=== PATIENT | female | born 1940 | race Caucasian/White ===

== ENCOUNTER → 2017-03-26 | Outpatient (CLI) | payer MEDICARE, BC ==
--- NOTE | 2017-03-27 10:37 | MM ---
Reason for exam: screening (asymptomatic). Last mammogram was performed 1 year and 5 months ago. History: Patient is postmenopausal and has history of other cancer at age 69. Family history of breast cancer in maternal aunt. Benign core biopsy of the right breast, 1989. Physical Findings: A clinical breast exam by your physician is recommended on an annual basis and results should be correlated with mammographic findings. MG 3D Screening Mammo W/Cad Bilateral CC and MLO view(s) were taken. Prior study comparison: November 01, 2015, bilateral MG screening mammo w CAD. October 28, 2014, bilateral MG screening mammo w CAD. There are scattered fibroglandular densities. No significant changes when compared with prior studies. ASSESSMENT: Benign, BI-RAD 2 RECOMMENDATION: Routine screening mammogram of both breasts in 1 year.
== END | disposition home or self-care (01) ==
LOC: RADMAMWWP 08:41
PROVIDERS: ATTEND Family Medicine
DX: Z12.31 Encounter for screening mammogram for malignant neoplasm of breast (principal)
CPT/HCPCS: 77063; G0202

== ENCOUNTER → 2017-07-03 | Outpatient (CLI) | payer MEDICARE, BC ==
[2017-07-03 07:08] LABS: Basophils % (A) 1 %; CH 29.5; CHCM 32.8; Eosinophils # (A) 0.2 k/uL (0-0.7); Eosinophils % (A) 3 %; HCT 45.3 % (34.0-46.0); HDW 2.37; HGB 14.9 gm/dL (11.4-16.0); Luc # (Auto) 0.12; Luc % (Auto) 2; Lymphocytes # (A) 2.5 k/uL (1.0-4.8); Lymphocytes % (A) 43 %; MCH 29.7 pg (25.0-35.0); MCHC 32.9 g/dL (31.0-37.0); MCV 90.2 fL (80.0-100.0); Mean Platelet Volume 7.3; Monocytes # (A) 0.2 k/uL (0-1.0); Monocytes % (A) 4 %; Neutrophils # (A) 2.8 k/uL (1.3-7.7); Neutrophils % (A) 48 %; RBC 5.01 m/uL (3.80-5.40); RDW 12.2 % (11.5-15.5); WBC 5.8 k/uL (3.8-10.6); WBC (Perox) 5.98
[2017-07-03 07:20] LABS: ALT 37 U/L (9-52); AST 20 U/L (14-36); Alkaline Phosphatase 62 U/L (38-126); Anion Gap 7 mmol/L; Blood Urea Nitrogen 19 mg/dL (7-17); Calcium 9.9 mg/dL (8.4-10.2); Carbon Dioxide 26 mmol/L (22-30); Chloride 110 mmol/L (98-107); Cholesterol 257 mg/dL (<200); Glucose 99 mg/dL (74-99); HDL Cholesterol 62 mg/dL (40-60); Non-African American GFR(MDRD) >60 (>60 ml/min/1.73 sqM); Potassium 4.7 mmol/L (3.5-5.1); Sodium 143 mmol/L (137-145); Total Bilirubin 0.5 mg/dL (0.2-1.3); Total Protein 6.3 g/dL (6.3-8.2); Triglycerides 216 mg/dL (<150)
== END | disposition home or self-care (01) ==
LOC: LABWHC1 06:46
PROVIDERS: ATTEND Family Medicine
DX: Z00.00 Encounter for general adult medical examination without abnormal findings (principal); E78.00 Pure hypercholesterolemia, unspecified; Z13.29 Encounter for screening for other suspected endocrine disorder
CPT/HCPCS: 36415; 80053; 80061; 84443; 85025

== ENCOUNTER → 2018-09-09 | Outpatient (CLI) | payer MEDICARE, BC ==
[2018-09-09 09:36] LABS: Basophils % (A) 1 %; Eosinophils # (A) 0.2 k/uL (0-0.7); Eosinophils % (A) 3 %; HCT 44.3 % (34.0-46.0); HGB 14.5 gm/dL (11.4-16.0); Lymphocytes # (A) 2.3 k/uL (1.0-4.8); Lymphocytes % (A) 38 %; MCH 28.6 pg (25.0-35.0); MCHC 32.6 g/dL (31.0-37.0); MCV 87.6 fL (80.0-100.0); Monocytes # (A) 0.2 k/uL (0-1.0); Monocytes % (A) 4 %; Neutrophils # (A) 3.2 k/uL (1.3-7.7); Neutrophils % (A) 53 %; Platelet Count 324 k/uL (150-450); RBC 5.06 m/uL (3.80-5.40); RDW 12.7 % (11.5-15.5)
[2018-09-09 09:57] LABS: Albumin 3.9 g/dL (3.5-5.0); Calcium 9.8 mg/dL (8.4-10.2); Potassium 4.6 mmol/L (3.5-5.1); Total Bilirubin 0.7 mg/dL (0.2-1.3); Total Protein 6.4 g/dL (6.3-8.2)
== END | disposition home or self-care (01) ==
LOC: LABWHC1 07:38
PROVIDERS: ATTEND Family Medicine
DX: E78.00 Pure hypercholesterolemia, unspecified (principal); I10 Essential (primary) hypertension
CPT/HCPCS: 36415; 80053; 80061; 85025

== ENCOUNTER → 2019-04-08 | Outpatient (CLI) | payer MEDICARE, BC ==
--- NOTE | 2019-04-09 12:54 | MM ---
Reason for exam: screening (asymptomatic). Last mammogram was performed 2 years ago. History: Patient is postmenopausal and has history of other cancer at age 69. Family history of breast cancer in maternal aunt. Benign core biopsy of the right breast, 1989. Physical Findings: A clinical breast exam by your physician is recommended on an annual basis and results should be correlated with mammographic findings. MG 3D Screening Mammo W/Cad Bilateral CC and MLO view(s) were taken. Prior study comparison: March 26, 2017, bilateral MG 3d screening mammo w/cad. November 01, 2015, bilateral MG screening mammo w CAD. There are scattered fibroglandular densities. Stable benign calcifications. Increasing nodule upper outer right breast. ASSESSMENT: Incomplete: need additional imaging evaluation, BI-RAD 0 RECOMMENDATION: Special view mammogram and ultrasound of the right breast. [facility] will attempt to contact patient to return for supplemental views and ultrasound.
== END | disposition home or self-care (01) ==
LOC: RADMAMWWP 12:36
PROVIDERS: ATTEND Family Medicine
DX: Z12.31 Encounter for screening mammogram for malignant neoplasm of breast (principal)
CPT/HCPCS: 77063; 77067

== ENCOUNTER → 2019-04-13 | Outpatient (CLI) | payer MEDICARE, BC ==
[2019-04-13 12:00] LABS: LDL Cholesterol,Calculated 152.6 mg/dL (0.0-131.0); VLDL Calculation 43.4 mg/dL (5.00-40.00)
== END | disposition home or self-care (01) ==
LOC: LABWHC1 07:05
PROVIDERS: ATTEND Family Medicine
DX: Z00.00 Encounter for general adult medical examination without abnormal findings (principal); E78.00 Pure hypercholesterolemia, unspecified
CPT/HCPCS: 36415; 80061; 84450; 84460

== ENCOUNTER → 2019-04-16 | Outpatient (CLI) | payer MEDICARE, BC ==
--- NOTE | 2019-04-16 15:14 | MM ---
Reason for exam: additional evaluation requested from abnormal screening. Last mammogram was performed less than 1 month ago. History: Patient is postmenopausal and has history of other cancer at age 69. Family history of breast cancer in maternal aunt. Benign core biopsy of the right breast, 1989. Physical Findings: Nurse did not find any significant physical abnormalities on exam. MG 3D Work Up W/Cad RT Spot compression CC, spot compression MLO, and LM view(s) were taken of the right breast. Prior study comparison: April 08, 2019, bilateral MG 3d screening mammo w/cad. March 26, 2017, bilateral MG 3d screening mammo w/cad. There are scattered fibroglandular densities. No significant new findings when compared with previous films. These results were verbally communicated with the patient and result sheet given to the patient on 04/16/19. ASSESSMENT: Incomplete: need additional imaging evaluation, BI-RAD 0 RECOMMENDATION: Ultrasound of the right breast.
--- NOTE | 2019-04-16 15:15 | USB ---
Reason for exam: additional evaluation requested from abnormal screening. History: Patient is postmenopausal and has history of other cancer at age 69. Family history of breast cancer in maternal aunt. Benign core biopsy of the right breast, 1989. US Breast Workup Limited RT Right limited breast ultrasound including focal area of concern, retroareolar and axilla demonstrates a 5 x 4 x 4mm hypoechoic lesion too small to characterize at 11 o'clock. These results were verbally communicated with the patient and result sheet given to the patient on 04/16/19. ASSESSMENT: Probably benign, BI-RAD 3 RECOMMENDATION: Ultrasound of the right breast in 6 months.
== END | disposition home or self-care (01) ==
LOC: RADMAMWWP 13:23
PROVIDERS: ATTEND Family Medicine
DX: R92.8 Other abnormal and inconclusive findings on diagnostic imaging of breast (principal)
CPT/HCPCS: 77065; 76642; G0279; 77061

== ENCOUNTER → 2019-11-04 | Outpatient (CLI) | payer MEDICARE, BC ==
--- NOTE | 2019-11-04 11:48 | USB ---
Reason for exam: follow-up at short interval from prior study. History: Patient is postmenopausal and has history of other cancer at age 69. Family history of breast cancer in maternal aunt. Benign core biopsy of the right breast, 1989. Physical Findings: Nurse did not find any significant physical abnormalities on exam. US Breast Limited RT Technologist: Paris Carroll Right limited breast ultrasound including focal area of concern, retroareolar and axilla demonstrates a 0.5 x 0.5 x 0.4cm hypoechoic lesion at 11 o'clock, solid with shadowing peripheral vascular flow. Biopsy recommended. These results were verbally communicated with the patient and result sheet given to the patient on 11/04/19. ASSESSMENT: Suspicious, BI-RAD 4 RECOMMENDATION: Ultrasound core biopsy of the right breast. Called Dr. Marisol Shen's office with mammographic findings and has scheduled an appointment for the patient for 12/29/18 at 4:[address] Shen. Biopsy scheduled for 11/29/19 at 2:00. PRELIMINARY REPORT CALLED AND FAXED TO DR. SHEN ON 11/04/19.
== END | disposition home or self-care (01) ==
LOC: RADUSWWP 09:53
PROVIDERS: ATTEND Family Medicine
DX: R92.8 Other abnormal and inconclusive findings on diagnostic imaging of breast (principal)

== ENCOUNTER → 2019-11-29 | Day surgery (SDC) | payer MEDICARE, BC ==
[2019-11-29 13:22] VITALS: RESP 16
[2019-11-29 14:22] VITALS: BP 150/77; PULSE 69; TEMP 98.4
--- NOTE | 2019-11-29 15:55 | USB ---
EXAMINATION TYPE: US biopsy breast VAD RT, MG diagnostic mammo RT wo CAD DATE OF EXAM: 11/29/2019 CLINICAL HISTORY: R92.8 ABNORMAL MAMMORGRAM. TECHNIQUE: Ultrasound guided core biopsy of right breast. COMPARISON: 11/04/2019 FINDINGS: The procedure of ultrasound guided core biopsy was explained to the patient. Benefits, alternatives, and risks were discussed. An informed consent was then obtained. Preprocedural timeout was performed. The patient was placed in supine positioning for imaging and for the procedure. The overlying skin was prepped and draped in usual sterile fashion. 10 cc of 1% lidocaine was used as anesthetic into the skin and subcutaneous tissue up to a 0.5 cm mass at the 11:00 position in the right breast. On preprocedural imaging studies have similar MR appearance of a lymph node. Under ultrasound guidance, a 12-gauge vacuum assisted biopsy gun device was used to obtain 4 core samples. Following this, a coil-shaped biopsy marker was left at the site of biopsy. Post procedure mammogram demonstrates appropriate biopsy marker placement correlating with the mammographic mass. The patient tolerated the procedure well without any immediate complication. The patient was kept in the radiology department for short stay after the procedure and then discharged home in stable condition. IMPRESSION: Successful, uncomplicated ultrasound guided core biopsy of a 0.5 cm mass at the 11:00 position in the right breast, possible intramammary lymph node, full pathology results to follow. Pathology Results: Malignant RIGHT BREAST AT ELEVEN O'CLOCK, ULTRASOUND GUIDED CORE BIOPSY: Invasive ductal carcinoma (grade 2). See Surgical Pathology Cancer Case Summary and Comment. Recommendation Surgical consult of the right breast. Surgical excision/managment. Ammendable to mammographic guided needle localization. MTDD
== END ==
LOC: RADUSWWP 12:42
PROVIDERS: ATTEND Surgery
DX: C50.911 Malignant neoplasm of unspecified site of right female breast (principal); Z17.0 Estrogen receptor positive status [ER+]; Z88.1 Allergy status to other antibiotic agents; Z88.0 Allergy status to penicillin
CPT/HCPCS: 88305; 88342; 88341; 77065; 19083; A4648; J2001

== ENCOUNTER 2020-01-03 08:18 | Day surgery (SDC) | payer MEDICARE, BC ==
[2019-12-30 09:16] VITALS: BMI 30.7
[~2020-01-03 08:18] MED LIST: DEXAMETHASONE SOD PHOSPHATE 10 MG/ML 1 ML VIAL IV ONE; HEPARIN SODIUM,PORCINE 5,000 UNIT/ML 1 ML VIAL SQ ONE; LACTATED RINGERS 1,000 ML IV SCH; LIDOCAINE 1% 20 ML VIAL (10MG/ML) FOR IV START INTRADERMA PRN; ONDANSETRON 4 MG/2 ML VIAL IVP ONE; Pre Op ABX Message 1 EACH MISC MISCELLANE ONE
[2020-01-03] MEDS ORDERED: LIDOCAINE 1% INJ 10MG/ML (20 ML MDV) SQ ONE (09:56)
--- NOTE | 2020-01-03 10:40 | NM ---
EXAMINATION TYPE: NM sentinel node injection DATE OF EXAM: 01/03/2020 COMPARISON: Right breast biopsy dated 11/29/2019 HISTORY: Right breast cancer with request for sentinel node injection TECHNIQUE AND FINDINGS: The procedure of sentinel lymph node injection was explained to the patient. The benefits, alternatives, and risks were discussed. An informed consent was then obtained. Overlying skin is cleaned with sterile alcohol. Following this, 535 uCi Tc99m Tilmanocept was inject ed in the upper outer aspect of the right nipple intradermally. The patient tolerated the procedure well without any immediate complication. The patient was kept in the radiology department for short stay after the procedure and then taken to surgery for surgical p rocedure what is presumed intraoperative gamma probe will be used for sentinel lymph node detection. IMPRESSION: Right breast radiotracer injection for sentinel node localization as above.
[2020-01-03] MEDS ORDERED: PHENYLEPHRINE-0.9% NACL SYG 1 MG/10 ML SYRINGE ONE (11:06)
[2020-01-03] MEDS ORDERED: fentaNYL (PF) 50 MCG/ML 2 ML AMP ONE (11:06)
[2020-01-03] MEDS ORDERED: LIDOCAINE 1% INJ 10MG/ML (20 ML MDV) ONE (11:06)
[2020-01-03] MEDS ORDERED: MIDAZOLAM 2 MG/2 ML VIAL ONE (11:06)
[2020-01-03] MEDS ORDERED: PROPOFOL 10 MG/ML 20 ML VIAL IV ONE (11:06)
[2020-01-03] MEDS ORDERED: CLINDAMYCIN 150 MG/ML 4 ML VIAL IVPB ONE (11:33)
[2020-01-03] MEDS ORDERED: BUPIVACAINE (PF) 0.25% 30 ML VIAL SQ ONE ×2 (11:36→12:31)
[2020-01-03] MEDS ORDERED: ACETAMINOPHEN TAB 325 MG TAB PO PRN (12:33)
[2020-01-03] MEDS ORDERED: NALOXONE 0.4 MG/ML 1 ML VIAL IV PRN (12:33)
--- NOTE | 2020-01-03 12:36 | P.OP ---
Date of Procedure: 01/03/20 Procedure(s) Performed: REOPERATIVE DIAGNOSIS: Right breast cancer POSTOPERATIVE DIAGNOSIS: Same PROCEDURE: Right Breast wire localization lumpectomy with sentinel lymph node biopsy SURGEON: Johnnie EBL: Minimal ANESTHESIA: General COMPLICATIONS: None OPERATIVE PROCEDURE: Patient was placed on the operating room table in the supine position. 2 mL of methylene blue was injected into the subareolar space. The breast was then massaged for 5 minutes. The breast was prepped and draped in usual sterile fashion. The right axilla was addressed at that time. The hot spot in the right axilla was identified. A small curvilinear incision was made using the scalpel. Dissection down through the subcutaneous tissues took place using electrocautery. Using the neoprobe I identified a single hot and blue lymph node. This was removed. Clinically this appeared normal. No frozen section was obtained. There was additional blue color and radioactivity present in what likely represented the lymphatic channels feeding this sentinel node. This was excised and labeled lymph tissue. No additional abnormalities within the axilla were identified. There was no residual radioactivity. No bleeding was seen. The subcutaneous tissues were closed using 3-0 Vicryl sutures. The skin was closed using 4-0 Monocryl sutures. The wire entrance site was then addressed. This was present at the 11:00 location. A curvilinear incision was made inferior to the wire entrance site. Flaps were raised from that incision site up to the wire entrance site. The wire was then brought out through our incision. I followed the wire down into the breast tissue. An adequate lumpectomy specimen then took place around the wire. Margins of 1.5-2 cm worth attempted to be achieved. Palpation of the specimen suggested that the anterior margin may have been somewhat close. An additional anterior margin was taken and the new margin was painted the appropriate color on the new margin side. The initial specimen was also painted the appropriate 6 colors. Clips were used to identify the lumpectomy cavity. The clip was confirmed to be within the lumpectomy specimen by radiology. The subcutaneous tissues were closed using 3- 0 Vicryl sutures. The skin was closed using a running 4-0 Monocryl stitch. Skin glue and sterile dressings were then applied. DISPOSITION: Stable to recovery room
[2020-01-03 12:41] VITALS: TEMP 98.2
--- NOTE | 2020-01-03 12:45 | MM ---
EXAMINATION TYPE: MG pre op needle loc RT, MG surgical specimen RT DATE OF EXAM: 01/03/2020 COMPARISON: Right breast biopsy dated 11/29/2019 CLINICAL HISTORY: Biopsy-proven right breast cancer TECHNIQUE: Needle localization with wire placement and surgical excision of area of concern in the right breast. FINDINGS: The procedure of needle localization with wire placement and than surgical excision was explained to the patient. Benefits, alternatives, and risks were discussed. An informed consent was then obtained. Preprocedural timeout was performed. The shortest pathway for procedure was chosen. Shortest pathway was CC from above approach. The overlying skin was prepped and draped in usual sterile fashion. 10 cc of 1% lidocaine was used as anesthetic into the skin and subcutaneous tissue up to the level of area of concern. A 7 cm needle was used. It was placed via a CC from above approach under mammographic guidance. Subsequent 90 degrees mammogram show the needle to be in satisfactory position relative to the targeted area. At this point, wire was placed and the needle was withdrawn. The wire was fixed to patient's skin. Images were marked for surgeon. The patient tolerated the procedure well without any immediate complication. The patient was kept in the radiology department for short stay after the procedure and then taken to surgery for surgical excision. Targeted mammographic mass and coil-shaped biopsy marker and wire are identified in specimen mammogram. The patient was kept in hospital for short stay after the procedure and then discharged home in stable condition. IMPRESSION: Successful, uncomplicated needle localization with wire placement and surgical excision of a biopsy-proven right breast invasive ductal carcinoma and associated coil-shaped biopsy marker in the right breast, full pathology results to follow. Pathology Results: Malignant A. SENTINEL LYMPH NODE #1, BIOPSY: One lymph node negative for metastatic adenocarcinoma by H+E as well as appropriately controlled immunohistochemical studies for cytokeratin 7 and BALA. B. "LYMPHATIC TISSUE", EXCISION: Benign fibroadipose tissue, lymph node not identified. C. RIGHT BREAST, LUMPECTOMY: Adenocarcinoma, Holden grade 2 measuring 0.8 x 0.5 x 0.6 cm. Surrounding fibrosis/desmoplasia approximates the superoposterior black/purple-felicita margin and the posterior purple-felicita margin to closer than 1 mm. See note. D. NEW RIGHT ANTERIOR MARGIN, EXTENDED EXCISION: Benign fibroadipose breast parenchyma with focal atypical duct hyperplasia about 1.2 mm away from the intraoperatively blue inked margin of resection. Recommendation Surgical consult of the right breast. Continued surgical/medical management. MTDD
[2020-01-03] MEDS: HYDROmorphone 0.5 MG/0.5 ML SYRINGE IVP PRN ×2 (12:55→13:09)
[2020-01-03 13:03] VITALS: RESP 16
[2020-01-03] MEDS ORDERED: KETOROLAC 30 MG/ML 1 ML VIAL IVP ONE (14:16)
[2020-01-03 14:56] VITALS: BP 138/84; PULSE 74
== END 2020-01-03 15:15 | disposition home or self-care (01) ==
LOC: OR 08:18
PROVIDERS: ATTEND Surgery
DX: C50.411 Malignant neoplasm of upper-outer quadrant of right female breast (principal); N60.91 Unspecified benign mammary dysplasia of right breast; N60.31 Fibrosclerosis of right breast; I48.91 Unspecified atrial fibrillation; I10 Essential (primary) hypertension; M19.90 Unspecified osteoarthritis, unspecified site; Z88.0 Allergy status to penicillin; Z88.8 Allergy status to other drugs, medicaments and biological substances; Z88.1 Allergy status to other antibiotic agents; Z91.048 Other nonmedicinal substance allergy status; Z82.3 Family history of stroke; Z80.0 Family history of malignant neoplasm of digestive organs; Z80.42 Family history of malignant neoplasm of prostate; Z90.710 Acquired absence of both cervix and uterus; Z90.49 Acquired absence of other specified parts of digestive tract; Z98.890 Other specified postprocedural states; Z79.82 Long term (current) use of aspirin; Z79.1 Long term (current) use of non-steroidal anti-inflammatories (NSAID); Z79.899 Other long term (current) drug therapy
CPT/HCPCS: 19301; 38525; 88305; 88342; 88307; 88341; 76098; 19281; 38792; A9520; J2250; J1644; J1100; J2405; J2001; J3010; J1885; J2370; J2704; J1170

== ENCOUNTER → 2020-05-19 | Outpatient (CLI) | payer MEDICARE, BC ==
--- NOTE | 2020-05-22 08:20 | MM ---
Reason for exam: additional evaluation requested from prior study. Last mammogram was performed 6 months ago. History: Patient is postmenopausal, has history of breast cancer at age 79, and has history of other cancer at age 69. Family history of breast cancer in maternal aunt. Malignant MG pre op needle loc RT of the right breast, January 03, 2020. Lumpectomy of the right breast, January 03, 2020. Malignant US biopsy breast VAD RT of the right breast, November 29, 2019. Benign core biopsy of the right breast, 1989. Physical Findings: Nurse did not find any significant physical abnormalities on exam. MG 3D Diag Mammo W/Cad CRYSTAL Bilateral CC and MLO view(s) were taken. Prior study comparison: November 29, 2019, right breast MG diagnostic mammo RT wo CAD. April 08, 2019, bilateral MG 3d screening mammo w/cad. Post biopsy changes right upper outer quadrant. No significant new findings when compared with previous films. These results were verbally communicated with the patient and result sheet given to the patient on 05/19/20. ASSESSMENT: Benign, BI-RAD 2 RECOMMENDATION: Follow-up diagnostic mammogram of both breasts in 1 year.
== END | disposition home or self-care (01) ==
LOC: RADMAMWWP 10:29
PROVIDERS: ATTEND Surgery
DX: R92.8 Other abnormal and inconclusive findings on diagnostic imaging of breast (principal)
CPT/HCPCS: 77066; G0279; 77062

== ENCOUNTER → 2020-06-14 | Outpatient (CLI) | payer MEDICARE, BC ==
[2020-06-14 08:59] LABS: Basophils # (A) 0.1 k/uL (0-0.2); Basophils % (A) 1 %; Eosinophils # (A) 0.2 k/uL (0-0.7); Eosinophils % (A) 2 %; HCT 44.5 % (34.0-46.0); HGB 14.3 gm/dL (11.4-16.0); Lymphocytes % (A) 33 %; MCH 29.1 pg (25.0-35.0); MCHC 32.2 g/dL (31.0-37.0); MCV 90.3 fL (80.0-100.0); Mean Platelet Volume 8.2; Monocytes # (A) 0.3 k/uL (0-1.0); Monocytes % (A) 5 %; Neutrophils # (A) 3.5 k/uL (1.3-7.7); Neutrophils % (A) 57 %; Platelet Count 264 k/uL (150-450); RBC 4.93 m/uL (3.80-5.40); RDW 12.7 % (11.5-15.5); WBC 6.1 k/uL (3.8-10.6)
[2020-06-14 16:28] LABS: African American GFR (CKD) 62.1 (60.0-200.0); Albumin 4.2 g/dL (3.80-4.90); Albumin/Globulin Ratio 2.47 (1.60-3.17); Anion Gap 7.2 mmol/L (4.00-12.00); Carbon Dioxide 25.8 mmol/L (21.6-31.8); Chol/HDL Ratio 4.17; Globulin 1.7 g/dL (1.6-3.3); LDL Cholesterol,Calculated 132.4 mg/dL (0.0-131.0); Non-African American GFR(CKD) 53.5 (60.0-200.0); Potassium 4.9 mmol/L (3.5-5.5); Total Bilirubin 0.5 mg/dL (0.2-1.2); Total Protein 5.9 g/dL (6.2-8.2); VLDL Calculation 35.6 mg/dL (5.00-40.00)
== END | disposition home or self-care (01) ==
LOC: LABWHC1 07:43
PROVIDERS: ATTEND Family Medicine
DX: I10 Essential (primary) hypertension (principal); E78.00 Pure hypercholesterolemia, unspecified; R01.1 Cardiac murmur, unspecified
CPT/HCPCS: 36415; 80053; 80061; 85025

== ENCOUNTER 2020-08-09 23:51 | Emergency (ER) | payer MEDICARE, BC ==
[2020-08-10] MEDS ORDERED: MORPHINE SULFATE 4 MG/ML SYRINGE IV STA (00:11)
[2020-08-10] MEDS ORDERED: ONDANSETRON 4 MG/2 ML VIAL IVP STA (00:11)
[2020-08-10] MEDS ORDERED: SODIUM CHLORIDE 0.9% 1,000 ML IV STA (00:11)
--- NOTE | 2020-08-10 00:13 | ED ---
Abdominal Pain HPI - General Chief Complaint: Abdominal Pain Stated Complaint: LT groin pain Time Seen by Provider: 08/09/20 23:59 Source: patient, family, RN notes reviewed, old records reviewed Mode of arrival: ambulatory Limitations: no limitations - History of Present Illness Initial Comments: 80-year-old female presents the ER today for evaluation for concern for onset of left-sided abdominal pain starting to be more severe at 10:00 tonight. She reports that she had some episodes of diarrhea starting this morning after having constipation from her recent trip to [facility]. Patient states that she's had a history of IBS in the past. She reports she's never had pain in her abdomen like this before. Surgical history includes section and cholecystectomy. Patient states that she's had no fevers. She reports the pain is worse with traveling in a car to come to the ER. - Related Data Home Medications Medication Instructions Recorded Confirmed Aspirin 81 mg PO DAILY 03/19/16 12/30/19 [place]-3 Fatty Acids/Fish Oil [Fish 1 cap PO DAILY 03/19/16 12/30/19 Oil 1,000 mg Softgel] Ibuprofen [Motrin] 400 mg PO BID PRN 11/15/19 12/30/19 atenoloL [Tenormin] 25 mg PO DAILY 11/15/19 01/03/20 Acetaminophen [Tylenol Extra 1,000 mg PO Q6HR PRN 12/30/19 01/03/20 Strength] Garlic 1 each PO DAILY 12/30/19 12/30/19 Loperamide [Imodium] 2 mg PO DIRECTED PRN 12/30/19 01/03/20 Multivitamins, Thera [Multivitamin 1 tab PO DAILY 12/30/19 12/30/19 (formulary)] Previous Rx's Medication Instructions Recorded Acetaminophen-Codeine 300-30mg 1 tab PO Q6H PRN 3 Days #12 tablet 08/10/20 [Tylenol w/codeine #3] Ibuprofen [Motrin] 600 mg PO Q8HR PRN #20 tab 08/10/20 Ondansetron Odt [Zofran Odt] 4 mg PO Q8HR PRN #12 tab 08/10/20 Tamsulosin [Flomax] 0.4 mg PO DAILY #7 cap 08/10/20 Allergies Allergy/AdvReac Type Severity Reaction Status Date / Time azithromycin [From Zithromax] Allergy Nausea & Verified 08/09/20 23:57 Vomiting & Diarrhea Penicillins Allergy Rash/Hives Verified 08/09/20 23:57 ezetimibe [From Zetia] AdvReac Unknown Nausea & Verified 08/09/20 23:57 Vomiting & Diarrhea Eeehfqh-Kbq-Jhe Reductase AdvReac Unknown Nausea & Verified 08/09/20 23:57 Inhibitor Vomiting & Diarrhea Review of Systems ROS Statement: Those systems with pertinent positive or pertinent negative responses have been documented in the HPI. ROS Other: All systems not noted in ROS Statement are negative. Past Medical History Past Medical History: Cancer, Hyperlipidemia, Hypertension, Osteoarthritis (OA) Additional Past Medical History / Comment(s): "HEART SKIPS A BEAT", BASAL CELL SKIN CANCER, RIGHT BREAST CANCER (DX OCT 2019), LOOSE STOOLS SINCE CHOLECYSTECTOMY., USES CANE PRN, ARTHRITIS WITH BACK PAIN. History of Any Multi-Drug Resistant Organisms: None Reported Past Surgical History: Cholecystectomy, Hysterectomy Additional Past Surgical History / Comment(s): cataracts,carpal tunnel release on lt, colonoscopy, lumpectomy right breast Past Anesthesia/Blood Transfusion Reactions: Postoperative Nausea & Vomiting (PONV) Past Psychological History: No Psychological Hx Reported Smoking Status: Never smoker Past Alcohol Use History: None Reported Past Drug Use History: None Reported - Past Family History Father Family Medical History: Cancer Additional Family Medical History / Comment(s): PROSTATE CANCER , COLON CANCER WITH METS. Mother Family Medical History: CVA/TIA Additional Family Medical History / Comment(s): LUPUS General Exam Limitations: no limitations General appearance: alert, in no apparent distress Head exam: Present: atraumatic, normocephalic, normal inspection Eye exam: Present: normal appearance, PERRL, EOMI. Absent: scleral icterus, conjunctival injection, periorbital swelling ENT exam: Present: normal exam, mucous membranes moist Neck exam: Present: normal inspection. Absent: tenderness, meningismus, lymphadenopathy Respiratory exam: Present: normal lung sounds bilaterally. Absent: respiratory distress, wheezes, rales, rhonchi, stridor Cardiovascular Exam: Present: regular rate, normal rhythm, normal heart sounds. Absent: systolic murmur, diastolic murmur, rubs, gallop, clicks GI/Abdominal exam: Present: soft, tenderness (Left lower quadrant tenderness), normal bowel sounds. Absent: distended, guarding, rebound, rigid Extremities exam: Present: normal inspection, full ROM, normal capillary refill. Absent: tenderness, pedal edema, joint swelling, calf tenderness Back exam: Present: normal inspection Neurological exam: Present: alert, oriented X3, CN II-XII intact Psychiatric exam: Present: normal affect, normal mood Skin exam: Present: warm, dry, intact, normal color. Absent: rash Course Vital Signs 08/09/20 08/10/20 23:52 01:13 Temperature 98.2 F Pulse Rate 96 68 Respiratory 20 18 Rate Blood Pressure 200/66 151/90 O2 Sat by Pulse 97 96 Oximetry Medical Decision Making - Medical Decision Making Rolled female presents return today with onset of left-sided abdominal pain starting approximately 10 PM tonight. Patient was not has no hematuria. White blood cell counts are. She also relates some diarrhea. Initial concern for diverticulitis. Patient's labs were negative. Kidney stone. CT on pelvis shows a left UVJ stone measuring 3 mm. Patient will be given Flomax and pain medication with department. Advised to follow-up with PCP. - Lab Data Result diagrams: 08/10/20 00:48 08/10/20 00:48 Lab Results 08/10/20 08/10/20 08/10/20 Range/Units 00:48 00:48 00:48 WBC 8.0 (3.8-10.6) k/uL RBC 4.55 (3.80-5.40) m/uL Hgb 13.1 (11.4-16.0) gm/dL Hct 41.2 (34.0-46.0) % MCV 90.6 (80.0-100.0) fL MCH 28.7 (25.0-35.0) pg MCHC 31.7 (31.0-37.0) g/dL RDW 12.6 (11.5-15.5) % Plt Count 271 (150-450) k/uL Neutrophils % 56 % Lymphocytes % 35 % Monocytes % 4 % Eosinophils % 3 % Basophils % 1 % Neutrophils # 4.5 (1.3-7.7) k/uL Lymphocytes # 2.8 (1.0-4.8) k/uL Monocytes # 0.4 (0-1.0) k/uL Eosinophils # 0.2 (0-0.7) k/uL Basophils # 0.1 (0-0.2) k/uL PT 9.5 (9.0-12.0) sec INR 0.9 (<1.2) APTT 23.1 (22.0-30.0) sec Sodium (137-145) mmol/L Potassium (3.5-5.1) mmol/L Chloride (98-107) mmol/L Carbon Dioxide (22-30) mmol/L Anion Gap mmol/L BUN (7-17) mg/dL Creatinine (0.52-1.04) mg/dL Est GFR (CKD-EPI)AfAm (>60 ml/min/1.73 sqM) Est GFR (CKD-EPI)NonAf (>60 ml/min/1.73 sqM) Glucose (74-99) mg/dL Plasma Lactic Acid [place] (0.7-2.0) mmol/L Calcium (8.4-10.2) mg/dL Total Bilirubin (0.2-1.3) mg/dL AST (14-36) U/L ALT (4-34) U/L Alkaline Phosphatase (38-126) U/L Total Protein (6.3-8.2) g/dL Albumin (3.5-5.0) g/dL Amylase (30-110) U/L Lipase (23-300) U/L Urine Color Yellow Urine Appearance Clear (Clear) Urine pH 5.5 (5.0-8.0) Ur Specific [place] 1.017 (1.001-1.035) Urine Protein Negative (Negative) Urine Glucose (UA) Negative (Negative) Urine Ketones Negative (Negative) Urine Blood Moderate H (Negative) Urine Nitrite Negative (Negative) Urine Bilirubin Negative (Negative) Urine Urobilinogen <2.0 (<2.0) mg/dL Ur Leukocyte Esterase Moderate H (Negative) Urine RBC 14 H (0-5) /hpf Urine WBC 8 H (0-5) /hpf Ur Squamous Epith Cells 2 (0-4) /hpf Urine Mucus Rare H (None) /hpf 08/10/20 08/10/20 Range/Units 00:48 00:48 WBC (3.8-10.6) k/uL RBC (3.80-5.40) m/uL Hgb (11.4-16.0) gm/dL Hct (34.0-46.0) % MCV (80.0-100.0) fL MCH (25.0-35.0) pg MCHC (31.0-37.0) g/dL RDW (11.5-15.5) % Plt Count (150-450) k/uL Neutrophils % % Lymphocytes % % Monocytes % % Eosinophils % % Basophils % % Neutrophils # (1.3-7.7) k/uL Lymphocytes # (1.0-4.8) k/uL Monocytes # (0-1.0) k/uL Eosinophils # (0-0.7) k/uL Basophils # (0-0.2) k/uL PT (9.0-12.0) sec INR (<1.2) APTT (22.0-30.0) sec Sodium 138 (137-145) mmol/L Potassium 3.9 (3.5-5.1) mmol/L Chloride 110 H (98-107) mmol/L Carbon Dioxide 20 L (22-30) mmol/L Anion Gap 8 mmol/L BUN 23 H (7-17) mg/dL Creatinine 0.86 (0.52-1.04) mg/dL Est GFR (CKD-EPI)AfAm 74 (>60 ml/min/1.73 sqM) Est GFR (CKD-EPI)NonAf 65 (>60 ml/min/1.73 sqM) Glucose 120 H (74-99) mg/dL Plasma Lactic Acid [place] 1.4 (0.7-2.0) mmol/L Calcium 9.7 (8.4-10.2) mg/dL Total Bilirubin 0.3 (0.2-1.3) mg/dL AST 20 (14-36) U/L ALT 17 (4-34) U/L Alkaline Phosphatase 64 (38-126) U/L Total Protein 6.1 L (6.3-8.2) g/dL Albumin 3.8 (3.5-5.0) g/dL Amylase 37 (30-110) U/L Lipase 52 (23-300) U/L Urine Color Urine Appearance (Clear) Urine pH (5.0-8.0) Ur Specific [place] (1.001-1.035) Urine Protein (Negative) Urine Glucose (UA) (Negative) Urine Ketones (Negative) Urine Blood (Negative) Urine Nitrite (Negative) Urine Bilirubin (Negative) Urine Urobilinogen (<2.0) mg/dL Ur Leukocyte Esterase (Negative) Urine RBC (0-5) /hpf Urine WBC (0-5) /hpf Ur Squamous Epith Cells (0-4) /hpf Urine Mucus (None) /hpf - Radiology Data Radiology results: report reviewed Small obstructing calculus at the left UVJ with mild left-sided hydronephrosis and hydroureter. Mild obstruction. Moderate sigmoid diverticulosis minimal fluid in the posterior; really diverticulitis that is chronic. No significant fat stranding for acute diverticulitis. Mild fibrotic changes and subsegmental abscess. 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 Disposition Clinical Impression: Left ureteral calculus Disposition: HOME SELF-CARE Condition: Good Instructions (If sedation given, give patient instructions): Ureteral Stones (ED) Additional Instructions: Patient has a take medication as prescribed. Follow-up with PCP. Return to the ED if any alarming signs or symptoms occur. Prescriptions: Tamsulosin [Flomax] 0.4 mg PO DAILY #7 cap Ibuprofen [Motrin] 600 mg PO Q8HR PRN #20 tab PRN Reason: Pain Acetaminophen-Codeine 300-30mg [Tylenol w/codeine #3] 1 tab PO Q6H PRN 3 Days #12 tablet PRN Reason: Pain Ondansetron Odt [Zofran Odt] 4 mg PO Q8HR PRN #12 tab PRN Reason: Nausea Is patient prescribed a controlled substance at d/c from ED?: No Referrals: Marisol Blair MD [Primary Care Provider] - 1-2 days Time of Disposition: 02:34
[2020-08-10 00:57] LABS: Basophils # (A) 0.1 k/uL (0-0.2); Basophils % (A) 1 %; Eosinophils # (A) 0.2 k/uL (0-0.7); Eosinophils % (A) 3 %; HCT 41.2 % (34.0-46.0); HGB 13.1 gm/dL (11.4-16.0); Lymphocytes # (A) 2.8 k/uL (1.0-4.8); Lymphocytes % (A) 35 %; MCH 28.7 pg (25.0-35.0); MCHC 31.7 g/dL (31.0-37.0); MCV 90.6 fL (80.0-100.0); Mean Platelet Volume 8.2; Monocytes # (A) 0.4 k/uL (0-1.0); Monocytes % (A) 4 %; Neutrophils # (A) 4.5 k/uL (1.3-7.7); Neutrophils % (A) 56 %; Platelet Count 271 k/uL (150-450); RBC 4.55 m/uL (3.80-5.40); RDW 12.6 % (11.5-15.5)
[2020-08-10 00:59] LABS: Appearance,Urine Clear (Clear); Bilirubin,Urine Negative (Negative); Blood,Urine Moderate (Negative); Color,Urine Yellow; Glucose,Urine (UA) Negative (Negative); Ketones,Urine Negative (Negative); Leukocyte Esterase,Urine Moderate (Negative); Mucus,Urine Rare /hpf; Nitrite,Urine Negative (Negative); PH, Urine 5.5 (5.0-8.0); Protein,Urine Negative (Negative); RBC,Urine 14 /hpf (0-5); Specific Gravity,Urine 1.017 (1.001-1.035); Squamous Epithelial Cell,Urine 2 /hpf (0-4); Urobilinogen,Urine <2.0 mg/dL (<2.0); WBC,Urine 8 /hpf (0-5)
[2020-08-10] MEDS ORDERED: HYDROmorphone 1 MG/ML 1 ML SYRINGE IVP STA (01:01)
[2020-08-10 01:07] LABS: Albumin 3.8 g/dL (3.5-5.0); Calcium 9.7 mg/dL (8.4-10.2); INR 0.9 (<1.2); Partial Thromboplastin Time 23.1 sec (22.0-30.0); Potassium 3.9 mmol/L (3.5-5.1); Prothrombin Time 9.5 sec (9.0-12.0); Total Bilirubin 0.3 mg/dL (0.2-1.3); Total Protein 6.1 g/dL (6.3-8.2)
[2020-08-10 01:14] VITALS: RESP 18
--- NOTE | 2020-08-10 02:28 | CT ---
EXAMINATION TYPE: CT abdomen pelvis w con DATE OF EXAM: 08/10/2020 COMPARISON: None HISTORY: diverticulitis suspected, LLQ pain CT DLP: 1628.7 mGycm Automated exposure control for dose reduction was used. CONTRAST: Performed with IV Contrast, patient injected with 100 mL of Isovue 300. Images were obtained from the diaphragm to the floor the pelvis with IV contrast. There is mild scarring and subsegmental atelectasis at the lung bases. Heart size is normal. There is no pericardial effusion. There is no pleural effusion. There are clips from cholecystectomy. Intrahepatic bile ducts are not dilated. There is large common bile duct that measures 1.4 cm. The spleen is intact. There is no evidence of pancreatic mass. Stomac h is intact. There is no adrenal mass. Kidneys have normal size. There is fat containing rounded mass on the later al aspect of the right kidney that measures 2.3 cm in diameter. There is mild left-sided hydronephros is. Delayed images however show fairly normal renal excretion. There is ectasia of the left ureter. T here is a 3 mm calculus at the left ureterovesical junction. Bladder distends smoothly. There is no i nguinal hernia. There is no free fluid in the pelvis. There are numerous sigmoid diverticula. There is some mild flui d posterior to the mid sigmoid colon. There is no significant fat stranding around the sigmoid colon. Lumbar vertebra have normal alignment. There is degenerative disc space narrowing throughout the lumb ar spine with spurring and vacuum disc. There is no compression fracture of the lumbar spine. There i s 20% wedging of T12 vertebra that appears old. The bony pelvis is intact. Hip joints are intact. There is no ascites. There is no free air. IMPRESSION: Small obstructing calculus at the left ureterovesical junction with mild left-sided hydronephrosis an d hydroureter. There is mild obstruction. Moderate sigmoid diverticulosis. Minimal fluid posterior to the sigmoid colon could relate to diverti culitis that is chronic. No significant fat stranding seen to suggest acute diverticulitis. Mild fibrotic changes and subsegmental atelectasis at the lung bases. 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
[2020-08-10] MEDS ORDERED: ONDANSETRON 4 MG ODT STARTER PACK 2 TAB BTL PO STA (02:32)
[2020-08-10] MEDS ORDERED: traMADol 50 MG STARTER PACK 3 TAB BTL PO STA (02:32)
[2020-08-10] MEDS ORDERED: KETOROLAC 15 MG/ML 1 ML VIAL IVP STA (02:32)
[2020-08-10] MEDS ORDERED: TAMSULOSIN 0.4 MG CAP.ER.24H PO STA (02:32)
[2020-08-10 02:58] VITALS: BP 142/72; PULSE 69; TEMP 97.9
== END 2020-08-10 02:57 | disposition home or self-care (01) ==
LOC: EC 23:51
DX: N13.0 Hydronephrosis with ureteropelvic junction obstruction (principal); K57.30 Diverticulosis of large intestine without perforation or abscess without bleeding; E78.5 Hyperlipidemia, unspecified; I10 Essential (primary) hypertension; M19.90 Unspecified osteoarthritis, unspecified site; Z79.82 Long term (current) use of aspirin; Z79.899 Other long term (current) drug therapy; Z88.0 Allergy status to penicillin; Z88.1 Allergy status to other antibiotic agents; Z88.8 Allergy status to other drugs, medicaments and biological substances; Z80.42 Family history of malignant neoplasm of prostate; Z80.0 Family history of malignant neoplasm of digestive organs; Z90.49 Acquired absence of other specified parts of digestive tract; Z90.710 Acquired absence of both cervix and uterus; Z98.42 Cataract extraction status, left eye; Z98.41 Cataract extraction status, right eye; Z85.3 Personal history of malignant neoplasm of breast; Z85.828 Personal history of other malignant neoplasm of skin
CPT/HCPCS: 36415; 80053; 82150; 83605; 83690; 85025; 85610; 85730; 81001; 74177; 99284; 96374; 96375 ×3; 96361 ×2; J2270; J2405; J1170; J1885; S0119; Q9967

== ENCOUNTER → 2021-05-21 | Outpatient (CLI) | payer MEDICARE, BC ==
--- NOTE | 2021-05-21 12:15 | USB ---
EXAMINATION TYPE: US breast limited RT DATE OF EXAM: 05/21/2021 COMPARISON: Mammogram same date CLINICAL HISTORY: R92.8 abnormal mammogram. Findings: The right medial breast was scanned with ultrasound from 1-4 o'clock. No definite sonographic correla te for the possible asymmetry seen on mammogram. IMPRESSION: No definite sonographic correlate for the possible asymmetry seen on mammogram. BI-RADS 3, probably benign. Recommendation: Right diagnostic mammogram is recommended in 6 months.
--- NOTE | 2021-05-21 13:27 | MM ---
Reason for exam: additional evaluation requested from prior study. Last mammogram was performed 1 year ago. History: Patient is postmenopausal, has history of breast cancer at age 79, and has history of other cancer at age 69. Family history of breast cancer in maternal aunt. Malignant MG pre op needle loc RT of the right breast, January 03, 2020. Lumpectomy of the right breast, January 03, 2020. Malignant US biopsy breast VAD RT of the right breast, November 29, 2019. Benign core biopsy of the right breast, 1989. Physical Findings: Nurse did not find any significant physical abnormalities on exam. MG 3D Diag Mammo W/Cad CRYSTAL Bilateral CC and MLO view(s) were taken. Prior study comparison: May 19, 2020, bilateral MG 3d diag mammo w/cad [facility]. April 08, 2019, bilateral MG 3d screening mammo w/cad. There are scattered fibroglandular densities. There is a new possible asymmetry in the right slightly medial retroareolar breast on CC view only and ultrasound is recommended. These results were verbally communicated with the patient and result sheet given to the patient on 05/21/21. ASSESSMENT: Incomplete: need additional imaging evaluation, BI-RAD 0 RECOMMENDATION: Ultrasound of the right breast. (medial retroareolar) MTDD
== END | disposition home or self-care (01) ==
LOC: RADMAMWWP 10:53
PROVIDERS: ATTEND Surgery
DX: R92.8 Other abnormal and inconclusive findings on diagnostic imaging of breast (principal)
CPT/HCPCS: 77066; 76642; G0279; 77062

== ENCOUNTER → 2021-12-04 | Outpatient (CLI) | payer MEDICARE, BC ==
--- NOTE | 2021-12-04 10:31 | MM ---
Reason for exam: follow-up at short interval from prior study. Last mammogram was performed 6 months ago. History: Patient is postmenopausal, has history of breast cancer at age 79, and has history of other cancer at age 69. Family history of breast cancer in maternal aunt. Malignant MG pre op needle loc RT of the right breast, January 03, 2020. Lumpectomy of the right breast, January 03, 2020. Malignant US biopsy breast VAD RT of the right breast, November 29, 2019. Benign core biopsy of the right breast, 1989. Physical Findings: Nurse did not find any significant physical abnormalities on exam. MG 3D Diag Mammo W/Cad RT CC and MLO view(s) were taken of the right breast. Prior study comparison: May 21, 2021, bilateral MG 3d diag mammo w/cad [facility]. May 19, 2020, bilateral MG 3d diag mammo w/cad [facility]AL. There are scattered fibroglandular densities. Finding: There is a 7 mm equal density (isodense), indistinct irregular mass located 1 cm from the nipple in the subareolar position of the right breast, increased from prior. Post surgical changes right upper outer quadrant. New finding since May 21, 2021 and May 19, 2020. These results were verbally communicated with the patient and result sheet given to the patient on 12/04/21. ASSESSMENT: Incomplete: need additional imaging evaluation, BI-RAD 0 RECOMMENDATION: Ultrasound of the right breast.
--- NOTE | 2021-12-04 10:32 | USB ---
Reason for exam: additional evaluation requested from abnormal screening. History: Patient is postmenopausal, has history of breast cancer at age 79, and has history of other cancer at age 69. Family history of breast cancer in maternal aunt. Malignant MG pre op needle loc RT of the right breast, January 03, 2020. Lumpectomy of the right breast, January 03, 2020. Malignant US biopsy breast VAD RT of the right breast, November 29, 2019. Benign core biopsy of the right breast, 1989. US Breast Limited RT Right limited breast ultrasound including focal area of concern, retroareolar and axilla demonstrates no cystic or solid lesion seen. These results were verbally communicated with the patient and result sheet given to the patient on 12/04/21. ASSESSMENT: Negative, BI-RAD 1 RECOMMENDATION: Follow-up diagnostic mammogram of both breasts in 6 months.
== END | disposition home or self-care (01) ==
LOC: RADMAMWWP 08:38
PROVIDERS: ATTEND Surgery
DX: R92.8 Other abnormal and inconclusive findings on diagnostic imaging of breast (principal)
CPT/HCPCS: 77065; 76642; G0279; 77061

== ENCOUNTER → 2022-06-14 | Outpatient (CLI) | payer MEDICARE, BC ==
--- NOTE | 2022-06-17 09:17 | MM ---
Reason for Exam: Follow-up at short interval from prior study. Last mammogram was performed 1 year(s) and 1 month(s) ago. Patient History: Menarche at age 13. First Full-Term at age 22. Hysterectomy at age 31. Postmenopausal. Patient has history of breast feeding. Breast cancer, right, age 79. 1989, Benign Core Biopsy on the right side. 01/03/2020, Lumpectomy on the Right side. 01/03/2020, Malignant Core Biopsy on the right side. 11/29/2019, Malignant Core Biopsy on the right side. Maternal aunt had breast cancer at or over age 50. Prior Study Comparison: 05/19/2020 Bilateral Diagnostic Mammogram, [facility]. 05/21/2021 Bilateral Diagnostic Mammogram, [facility]. 12/04/2021 Right Diagnostic Mammogram, [facility]. Tissue Density: There are scattered fibroglandular densities. Findings: Analyzed By CAD. Mammogram Posttreatment changes right breast with surgical clips and distortion upper aspect are redemonstrated. A few scattered benign-appearing tiny round calcifications in the bilateral breasts are redemonstrated. No suspicious new mass or worrisome cluster of microcalcification either breast. Technique: Method: Targeted. Findings: The axilla of the right breast and the retroareolar of the right breast were scanned. No suspicious new solid or cystic mass. Overall Assessment: Benign, BI-RAD 2 Assessment: MG 3D diag mammo w/cad CRYSTAL - Bilateral: Benign, BI-RAD 2. US breast limited RT - Right: Negative, BI-RAD 1. Management: Diagnostic Mammogram of both breasts in 1 year. Back on annual schedule. Results were given to the patient verbally at the time of exam. Electronically signed and approved by: Barney Bhatt M.D.
== END | disposition home or self-care (01) ==
LOC: RADMAMWWP 13:30
PROVIDERS: ATTEND Surgery
DX: R92.8 Other abnormal and inconclusive findings on diagnostic imaging of breast (principal)
CPT/HCPCS: 77066; 76642; G0279; 77062

== ENCOUNTER 2022-07-14 07:21 | Emergency (ER) | payer MEDICARE, BC ==
[2022-07-14 07:30] VITALS: RESP 18
[2022-07-14] MEDS ORDERED: SODIUM CHLORIDE 0.9% 1,000 ML IV STA (07:44)
--- NOTE | 2022-07-14 07:47 | ED ---
General Adult HPI - General Chief complaint: Abdominal Pain Stated complaint: Abdominal Pain/Dizziness Time Seen by Provider: 07/14/22 07:24 Source: patient Mode of arrival: ambulatory Limitations: no limitations - History of Present Illness Initial comments: Dictation was produced using [employer] dictation software. please excuse any grammatical, word or spelling errors. Chief Complaint: 81-year-old female presents emergency department for abdominal symptoms History of Present Illness: She is 81-year-old female she has past medical history of cholecystectomy, dyslipidemia and hypertension. She states that 3-4 days ago she began experiencing some vague abdominal symptoms. States that it's like an ache to her lower abdomen. She did have some bouts of diarrhea however started to improve. Patient will have this morning with some mild symptoms that were worsened with ingesting some coffee this morning. Patient has any fever or constitutional symptoms. She has past medical history cholecystectomy. She reports that she has been diagnosed with a condition called tricky colon. States that she needs to watch what she eats. The ROS documented in this emergency department record has been reviewed and confirmed by me. Those systems with pertinent positive or negative responses have been documented in the HPI. All other systems are other negative and/or noncontributory. PHYSICAL EXAM: General Impression: Alert and oriented x3, not in acute distress HEENT: Normocephalic atraumatic, extra-ocular movements intact, pupils equal and reactive to light bilaterally, mucous membranes moist. Cardiovascular: Heart regular rate and rhythm Chest: Able to complete full sentences, no retractions, no tachypnea Abdomen: abdomen soft, mild palpatory tenderness in the epigastric area., non- distended, no organomegaly Musculoskeletal: Pulses present and equal in all extremities, no peripheral edema Motor: no focal deficits noted Neurological: CN II-XII grossly intact, no focal motor or sensory deficits noted Skin: Intact with no visualized rashes Psych: Normal affect and mood ED course: 81-year-old male presents to the emergency department for abdominal symptoms. All signs upon arrival are within acceptable limits. Patient's well- appearing at the bedside. She does not appear to be in any acute distress. Laboratory evaluation obtained. CBC, metabolic panel, abdominal labs are negative. Acute abdominal series with chest x-ray shows no acute processes. Urinalysis is unremarkable. Patient given IV fluids and monitored in the emergency department for approximately 1 hour 45 minutes. Patient stable medical condition. Patient be discharged. All questions answered. EKG interpretation: Ventricular rate 72, sinus rhythm, MT interval 155, QS 90, QTC 393. No MT prolongation, no QTC prolongation, no ST or T-wave changes noted. EKG compared to 03/20/2016 showing no changes. Overall, this EKG is unremarka ble - Related Data Home Medications Medication Instructions Recorded Confirmed Aspirin 81 mg PO DAILY 03/19/16 12/30/19 [place]-3 Fatty Acids/Fish Oil [Fish 1 cap PO DAILY 03/19/16 12/30/19 Oil 1,000 mg Softgel] Ibuprofen [Motrin] 400 mg PO BID PRN 11/15/19 12/30/19 atenoloL [Tenormin] 25 mg PO DAILY 11/15/19 01/03/20 Acetaminophen [Tylenol Extra 1,000 mg PO Q6HR PRN 12/30/19 01/03/20 Strength] Garlic 1 each PO DAILY 12/30/19 12/30/19 Loperamide [Imodium] 2 mg PO DIRECTED PRN 12/30/19 01/03/20 Multivitamins, Thera [Multivitamin 1 tab PO DAILY 12/30/19 12/30/19 (formulary)] Previous Rx's Medication Instructions Recorded Acetaminophen-Codeine 300-30mg 1 tab PO Q6H PRN 3 Days #12 tablet 08/10/20 [Tylenol w/codeine #3] Ibuprofen [Motrin] 600 mg PO Q8HR PRN #20 tab 08/10/20 Ondansetron Odt [Zofran Odt] 4 mg PO Q8HR PRN #12 tab 08/10/20 Tamsulosin [Flomax] 0.4 mg PO DAILY #7 cap 08/10/20 Allergies Allergy/AdvReac Type Severity Reaction Status Date / Time azithromycin [From Zithromax] Allergy Nausea & Verified 07/14/22 07:25 Vomiting & Diarrhea Penicillins Allergy Rash/Hives Verified 07/14/22 07:25 ezetimibe [From Zetia] AdvReac Unknown Nausea & Verified 07/14/22 07:25 Vomiting & Diarrhea Cqxetdo-RBQ-MxU Reductase AdvReac Unknown Nausea & Verified 07/14/22 07:25 Inhibitor Vomiting & [Xxlzivk-Zru-Mff Reductase Diarrhea Inhibitor] Review of Systems ROS Statement: Those systems with pertinent positive or pertinent negative responses have been documented in the HPI. ROS Other: All systems not noted in ROS Statement are negative. Past Medical History Past Medical History: Cancer, Hyperlipidemia, Hypertension, Osteoarthritis (OA) Additional Past Medical History / Comment(s): "HEART SKIPS A BEAT", BASAL CELL SKIN CANCER, RIGHT BREAST CANCER (DX OCT 2019), LOOSE STOOLS SINCE CHOLECYSTECTOMY., USES CANE PRN, ARTHRITIS WITH BACK PAIN. History of Any Multi-Drug Resistant Organisms: None Reported Past Surgical History: Cholecystectomy, Hysterectomy Additional Past Surgical History / Comment(s): cataracts,carpal tunnel release on lt, colonoscopy, lumpectomy right breast Past Anesthesia/Blood Transfusion Reactions: Postoperative Nausea & Vomiting (PONV) Past Psychological History: No Psychological Hx Reported Smoking Status: Never smoker Past Alcohol Use History: None Reported Past Drug Use History: None Reported - Past Family History Father Family Medical History: Cancer Additional Family Medical History / Comment(s): PROSTATE CANCER , COLON CANCER WITH METS. Mother Family Medical History: CVA/TIA Additional Family Medical History / Comment(s): LUPUS General Exam Limitations: no limitations Course Vital Signs 07/14/22 07:26 Temperature 98 F Pulse Rate 75 Respiratory 18 Rate Blood Pressure 166/77 O2 Sat by Pulse 95 Oximetry Medical Decision Making - Lab Data Result diagrams: 07/14/22 07:35 07/14/22 07:35 Lab Results 07/14/22 07/14/22 07/14/22 Range/Units 07:35 07:35 08:46 WBC 5.7 (3.8-10.6) k/uL RBC 4.41 (3.80-5.40) m/uL Hgb 13.1 (11.4-16.0) gm/dL Hct 40.5 (34.0-46.0) % MCV 91.9 (80.0-100.0) fL MCH 29.7 (25.0-35.0) pg MCHC 32.3 (31.0-37.0) g/dL RDW 12.5 (11.5-15.5) % Plt Count 293 (150-450) k/uL MPV 8.0 Neutrophils % 69 % Lymphocytes % 24 % Monocytes % 4 % Eosinophils % 2 % Basophils % 1 % Neutrophils # 3.9 (1.3-7.7) k/uL Lymphocytes # 1.3 (1.0-4.8) k/uL Monocytes # 0.2 (0-1.0) k/uL Eosinophils # 0.1 (0-0.7) k/uL Basophils # 0.0 (0-0.2) k/uL Sodium 140 (137-145) mmol/L Potassium 3.7 (3.5-5.1) mmol/L Chloride 105 (98-107) mmol/L Carbon Dioxide 25 (22-30) mmol/L Anion Gap 10 mmol/L BUN 11 (7-17) mg/dL Creatinine 0.65 (0.52-1.04) mg/dL Est GFR (CKD-EPI)AfAm >90 (>60 ml/min/1.73 sqM) Est GFR (CKD-EPI)NonAf 84 (>60 ml/min/1.73 sqM) Glucose 126 H (74-99) mg/dL Calcium 9.4 (8.4-10.2) mg/dL Magnesium 1.9 (1.6-2.3) mg/dL Total Bilirubin 0.4 (0.2-1.3) mg/dL AST 22 (14-36) U/L ALT 19 (4-34) U/L Alkaline Phosphatase 55 (38-126) U/L Total Protein 6.3 (6.3-8.2) g/dL Albumin 4.0 (3.5-5.0) g/dL Lipase 35 (23-300) U/L Urine Color Light Yellow Urine Appearance Clear (Clear) Urine pH 7.0 (5.0-8.0) Ur Specific [place] 1.007 (1.001-1.035) Urine Protein Negative (Negative) Urine Glucose (UA) Negative (Negative) Urine Ketones Negative (Negative) Urine Blood Trace H (Negative) Urine Nitrite Negative (Negative) Urine Bilirubin Negative (Negative) Urine Urobilinogen <2.0 (<2.0) mg/dL Ur Leukocyte Esterase Negative (Negative) Urine RBC 1 (0-5) /hpf Urine WBC 1 (0-5) /hpf Ur Squamous Epith Cells <1 (0-4) /hpf Urine Mucus Rare H (None) /hpf Disposition Clinical Impression: Abdominal pain Disposition: HOME SELF-CARE Condition: Good Instructions (If sedation given, give patient instructions): Abdominal Pain (ED) Is patient prescribed a controlled substance at d/c from ED?: No Referrals: Marisol Blair MD [Primary Care Provider] - 1-2 days Time of Disposition: 09:08
[2022-07-14 07:52] LABS: Basophils % (A) 1 %; Eosinophils # (A) 0.1 k/uL (0-0.7); Eosinophils % (A) 2 %; HCT 40.5 % (34.0-46.0); HGB 13.1 gm/dL (11.4-16.0); Lymphocytes # (A) 1.3 k/uL (1.0-4.8); Lymphocytes % (A) 24 %; MCH 29.7 pg (25.0-35.0); MCHC 32.3 g/dL (31.0-37.0); MCV 91.9 fL (80.0-100.0); Monocytes # (A) 0.2 k/uL (0-1.0); Monocytes % (A) 4 %; Neutrophils # (A) 3.9 k/uL (1.3-7.7); Neutrophils % (A) 69 %; Platelet Count 293 k/uL (150-450); RBC 4.41 m/uL (3.80-5.40); RDW 12.5 % (11.5-15.5); WBC 5.7 k/uL (3.8-10.6)
[2022-07-14 08:01] LABS: ALT 19 U/L (4-34); AST 22 U/L (14-36); African American GFR (CKD) >90 (>60 ml/min/1.73 sqM); Alkaline Phosphatase 55 U/L (38-126); Anion Gap 10 mmol/L; Blood Urea Nitrogen 11 mg/dL (7-17); Calcium 9.4 mg/dL (8.4-10.2); Carbon Dioxide 25 mmol/L (22-30); Chloride 105 mmol/L (98-107); Glucose 126 mg/dL (74-99); Lipase 35 U/L (23-300); Magnesium 1.9 mg/dL (1.6-2.3); Non-African American GFR(CKD) 84 (>60 ml/min/1.73 sqM); Potassium 3.7 mmol/L (3.5-5.1); Sodium 140 mmol/L (137-145); Total Bilirubin 0.4 mg/dL (0.2-1.3); Total Protein 6.3 g/dL (6.3-8.2)
--- NOTE | 2022-07-14 08:31 | XR ---
EXAMINATION TYPE: XR abdomen acute w cxr DATE OF EXAM: 07/14/2022 COMPARISON: NONE HISTORY: 81-year-old female abdominal pain, dizziness, diarrhea TECHNIQUE: Supine, upright, and left side down lateral decubitus views of the abdomen are obtained. FINDINGS: Heart normal size. Tortuous/ectatic thoracic aorta with atherosclerotic arch calcifications . Postsurgical changes right breast with surgical clips. Loss of the subacromial space on both sides compatible chronic full-thickness rotator cuff tears. Mild strandy atelectasis right lower lung. No f rank consolidation or pleural effusion. No evidence for free intraperitoneal air. There is a degenerated rotary dextro convex scoliosis of th e lumbar spine. Surgical clip projects at the right mid to lower abdomen. Question cholecystectomy cl ips. No dilated small bowel or air-fluid levels. Scattered mild to moderate stool is present. Pelvis was. Questionable 5 mm calcification left mid abdomen. IMPRESSION: 1. Previous right breast lumpectomy. Density at the right lower lung has the appearance of some stran dy atelectasis. No definite acute cardiopulmonary process. 2. No evidence for free air or bowel obstruction. Leqa-ud-quqsinwl stool. 3. Questionable 5 mm left renal calculus. 4. Degenerated dextroconvex scoliosis lumbar spine.
[2022-07-14 09:05] LABS: Appearance,Urine Clear (Clear); Bilirubin,Urine Negative (Negative); Blood,Urine Trace (Negative); Color,Urine Light Yellow; Glucose,Urine (UA) Negative (Negative); Ketones,Urine Negative (Negative); Leukocyte Esterase,Urine Negative (Negative); Mucus,Urine Rare /hpf; Nitrite,Urine Negative (Negative); Protein,Urine Negative (Negative); RBC,Urine 1 /hpf (0-5); Specific Gravity,Urine 1.007 (1.001-1.035); Squamous Epithelial Cell,Urine <1 /hpf (0-4); Urobilinogen,Urine <2.0 mg/dL (<2.0); WBC,Urine 1 /hpf (0-5)
[2022-07-14 09:47] VITALS: BP 162/78; PULSE 74; TEMP 98.1
== END 2022-07-14 09:46 | disposition home or self-care (01) ==
LOC: EC 07:21
DX: R10.30 Lower abdominal pain, unspecified (principal); R19.7 Diarrhea, unspecified; E78.5 Hyperlipidemia, unspecified; I10 Essential (primary) hypertension; Z90.49 Acquired absence of other specified parts of digestive tract; M19.90 Unspecified osteoarthritis, unspecified site; Z88.1 Allergy status to other antibiotic agents; Z88.0 Allergy status to penicillin; Z88.8 Allergy status to other drugs, medicaments and biological substances; Z79.899 Other long term (current) drug therapy; Z79.82 Long term (current) use of aspirin
CPT/HCPCS: 36415; 74022; 80053; 81001; 83690; 83735; 85025; 93005; 96360; 99284

== ENCOUNTER 2022-07-16 08:56 | Inpatient (IN) | payer MEDICARE, BC ==
[2022-07-16] MEDS ORDERED: DILTIAZEM DRIP BOLUS FROM BAG 1 MG SOLN IV ONE (09:21)
--- NOTE | 2022-07-16 09:21 | ED ---
Dizziness HPI - General Chief Complaint: Dizziness Stated Complaint: weakness Time Seen by Provider: 07/16/22 08:58 Source: patient, EMS, RN notes reviewed Mode of arrival: EMS Limitations: no limitations - History of Present Illness Initial Comments: 81-year-old female who presents by EMS with complaints of some midsternal chest pain upper epigastric area pain 7-810 severity also complaints of palpitations weakness some dizziness and lightheadedness. She also has some shortness of breath and exertional dyspnea. Per paramedics she did appear to have A. fib with RVR. Her heart rate during transport ranges between 140-160 bpm. Of note she was here 2 days ago for evaluation of abdominal pain and weakness. MD Complaint: dizziness, lightheadedness - Related Data Home Medications Medication Instructions Recorded Confirmed Aspirin 81 mg PO DAILY 03/19/16 07/16/22 atenoloL [Tenormin] 50 mg PO DAILY 11/15/19 07/16/22 Aspirin 325 mg PO ONCE PRN 07/16/22 07/16/22 Fluticasone Nasal [place] [Flonase 1 spray EA NOSTRIL BID 07/16/22 07/16/22 Nasal [place]] Allergies Allergy/AdvReac Type Severity Reaction Status Date / Time azithromycin [From Zithromax] Allergy Nausea & Verified 07/16/22 09:50 Vomiting & Diarrhea Penicillins Allergy Rash/Hives Verified 07/16/22 09:50 ezetimibe [From Zetia] AdvReac Unknown Nausea & Verified 07/16/22 09:50 Vomiting & Diarrhea Sjbxiay-QHO-JtP Reductase AdvReac Unknown Nausea & Verified 07/16/22 09:50 Inhibitor Vomiting & [Chyjsin-Hjy-Fos Reductase Diarrhea Inhibitor] Review of Systems ROS Statement: Those systems with pertinent positive or pertinent negative responses have been documented in the HPI. ROS Other: All systems not noted in ROS Statement are negative. Past Medical History Past Medical History: Cancer, Hyperlipidemia, Hypertension, Osteoarthritis (OA) Additional Past Medical History / Comment(s): "HEART SKIPS A BEAT", BASAL CELL SKIN CANCER, RIGHT BREAST CANCER (DX OCT 2019), LOOSE STOOLS SINCE CHOLECYSTECT RENNY., USES CANE PRN, ARTHRITIS WITH BACK PAIN. History of Any Multi-Drug Resistant Organisms: None Reported Past Surgical History: Cholecystectomy, Hysterectomy Additional Past Surgical History / Comment(s): cataracts,carpal tunnel release on lt, colonoscopy, lumpectomy right breast Past Anesthesia/Blood Transfusion Reactions: Postoperative Nausea & Vomiting (PONV) Past Psychological History: No Psychological Hx Reported Smoking Status: Never smoker Past Alcohol Use History: None Reported Past Drug Use History: None Reported - Past Family History Father Family Medical History: Cancer Additional Family Medical History / Comment(s): PROSTATE CANCER , COLON CANCER WITH METS. Mother Family Medical History: CVA/TIA Additional Family Medical History / Comment(s): LUPUS General Exam - General Exam Comments Initial Comments: This is a well-developed well-nourished awake alert oriented 4 female Limitations: no limitations General appearance: alert, anxious Head exam: Present: atraumatic, normocephalic, normal inspection Eye exam: Present: normal appearance, PERRL, EOMI. Absent: scleral icterus, conjunctival injection, periorbital swelling ENT exam: Present: mucous membranes dry Neck exam: Present: normal inspection, full ROM, other (JVD or bruits). Absent: tenderness, meningismus, lymphadenopathy Respiratory exam: Present: normal lung sounds bilaterally, chest wall tenderness (Reproducible to palpation with mid lower sternal costal sternal margin no step- off or crepitation). Absent: respiratory distress, wheezes, rales, rhonchi, stridor Cardiovascular Exam: Present: tachycardia, irregular rhythm. Absent: systolic murmur, diastolic murmur, rubs, gallop, clicks GI/Abdominal exam: Present: soft, normal bowel sounds. Absent: distended, tenderness, guarding, rebound, rigid Extremities exam: Present: normal inspection, full ROM, normal capillary refill. Absent: tenderness, pedal edema, joint swelling, calf tenderness Back exam: Present: normal inspection Neurological exam: Present: alert, oriented X3, CN II-XII intact Psychiatric exam: Present: normal affect, normal mood Skin exam: Present: warm, dry, intact, normal color. Absent: rash Course Vital Signs 07/16/22 07/16/22 07/16/22 08:57 09:07 09:19 Temperature 97.8 F Pulse Rate 72 128 H Pulse Rate [ 127 H Cook Manager ] Respiratory 18 20 Rate Blood Pressure 125/99 129/85 O2 Sat by Pulse 95 96 Oximetry 08/16/22 08/16/22 08/16/22 09:45 10:36 10:48 Temperature Pulse Rate 146 H 93 89 Pulse Rate [ Cook Manager ] Respiratory 20 18 20 Rate Blood Pressure 126/74 113/87 188/74 O2 Sat by Pulse 97 98 98 Oximetry EKG Findings - EKG Results: EKG: interpreted by GEORGINA (Atrial fibrillation rate 127 QRS 91 QT/QTC 290/[address] configuration) Medical Decision Making - Medical Decision Making I did discuss findings with the patient and family as well as with Dr. Campbell who did come see the patient in the emergency department patient will be admitted for inpatient evaluation and treatment of atrial fibrillation with a rapid ventricular response chest pain dizziness. - Lab Data Result diagrams: 07/16/22 09:15 07/16/22 09:15 Lab Results 07/16/22 07/16/22 07/16/22 Range/Units 09:15 09:15 09:15 WBC 6.9 (3.8-10.6) k/uL RBC 4.40 (3.80-5.40) m/uL Hgb 13.3 (11.4-16.0) gm/dL Hct 41.1 (34.0-46.0) % MCV 93.2 (80.0-100.0) fL MCH 30.1 (25.0-35.0) pg MCHC 32.3 (31.0-37.0) g/dL RDW 12.9 (11.5-15.5) % Plt Count 282 (150-450) k/uL MPV 8.5 Neutrophils % 72 % Lymphocytes % 20 % Monocytes % 4 % Eosinophils % 2 % Basophils % 1 % Neutrophils # 5.0 (1.3-7.7) k/uL Lymphocytes # 1.4 (1.0-4.8) k/uL Monocytes # 0.3 (0-1.0) k/uL Eosinophils # 0.1 (0-0.7) k/uL Basophils # 0.0 (0-0.2) k/uL PT 10.4 (9.0-12.0) sec INR 0.9 (<1.2) APTT 22.2 (22.0-30.0) sec Sodium 139 (137-145) mmol/L Potassium 3.5 (3.5-5.1) mmol/L Chloride 106 (98-107) mmol/L Carbon Dioxide 23 (22-30) mmol/L Anion Gap 10 mmol/L BUN 10 (7-17) mg/dL Creatinine 0.71 (0.52-1.04) mg/dL Est GFR (CKD-EPI)AfAm >90 (>60 ml/min/1.73 sqM) Est GFR (CKD-EPI)NonAf 81 (>60 ml/min/1.73 sqM) Glucose 142 H (74-99) mg/dL Calcium 9.2 (8.4-10.2) mg/dL Magnesium 1.9 (1.6-2.3) mg/dL Total Bilirubin 0.2 (0.2-1.3) mg/dL AST 22 (14-36) U/L ALT 17 (4-34) U/L Alkaline Phosphatase 47 (38-126) U/L Troponin I (0.000-0.034) ng/mL Total Protein 5.7 L (6.3-8.2) g/dL Albumin 3.5 (3.5-5.0) g/dL 07/16/22 Range/Units 09:15 WBC (3.8-10.6) k/uL RBC (3.80-5.40) m/uL Hgb (11.4-16.0) gm/dL Hct (34.0-46.0) % MCV (80.0-100.0) fL MCH (25.0-35.0) pg MCHC (31.0-37.0) g/dL RDW (11.5-15.5) % Plt Count (150-450) k/uL MPV Neutrophils % % Lymphocytes % % Monocytes % % Eosinophils % % Basophils % % Neutrophils # (1.3-7.7) k/uL Lymphocytes # (1.0-4.8) k/uL Monocytes # (0-1.0) k/uL Eosinophils # (0-0.7) k/uL Basophils # (0-0.2) k/uL PT (9.0-12.0) sec INR (<1.2) APTT (22.0-30.0) sec Sodium (137-145) mmol/L Potassium (3.5-5.1) mmol/L Chloride (98-107) mmol/L Carbon Dioxide (22-30) mmol/L Anion Gap mmol/L BUN (7-17) mg/dL Creatinine (0.52-1.04) mg/dL Est GFR (CKD-EPI)AfAm (>60 ml/min/1.73 sqM) Est GFR (CKD-EPI)NonAf (>60 ml/min/1.73 sqM) Glucose (74-99) mg/dL Calcium (8.4-10.2) mg/dL Magnesium (1.6-2.3) mg/dL Total Bilirubin (0.2-1.3) mg/dL AST (14-36) U/L ALT (4-34) U/L Alkaline Phosphatase (38-126) U/L Troponin I <0.012 (0.000-0.034) ng/mL Total Protein (6.3-8.2) g/dL Albumin (3.5-5.0) g/dL - Radiology Data Radiology results: report reviewed (Imaging reviewed as well as report no acute findings.), image reviewed Critical Care Time Critical Care Time: Yes Total Critical Care Time: 39 Critical Care Time: Critical care time includes initial presentation with history physical labs x- rays discussed with paramedics on arrival frequent reevaluation the patient and discussed with the patient family as well as the admitting physician review of old charting was available documentation of the above also admission orders Disposition Clinical Impression: Rapid atrial fibrillation, Chest pain Disposition: ADMITTED IP TO THIS HOSP Condition: Stable Referrals: Marisol Blair MD [Primary Care Provider] - 1-2 days Decision Date: 07/16/22 Decision Time: 12:00
[2022-07-16] MEDS ORDERED: DILTIAZEM 125 MG in SODIUM CHLORIDE 0.9% 100 ML IV SCH (09:30)
[2022-07-16 09:31] LABS: Basophils % (A) 1 %; Eosinophils # (A) 0.1 k/uL (0-0.7); Eosinophils % (A) 2 %; HCT 41.1 % (34.0-46.0); HGB 13.3 gm/dL (11.4-16.0); Lymphocytes # (A) 1.4 k/uL (1.0-4.8); Lymphocytes % (A) 20 %; MCH 30.1 pg (25.0-35.0); MCHC 32.3 g/dL (31.0-37.0); MCV 93.2 fL (80.0-100.0); Mean Platelet Volume 8.5; Monocytes # (A) 0.3 k/uL (0-1.0); Monocytes % (A) 4 %; Neutrophils % (A) 72 %; Platelet Count 282 k/uL (150-450); RDW 12.9 % (11.5-15.5); WBC 6.9 k/uL (3.8-10.6)
[2022-07-16 09:38] LABS: INR 0.9 (<1.2); Partial Thromboplastin Time 22.2 sec (22.0-30.0); Prothrombin Time 10.4 sec (9.0-12.0)
--- NOTE | 2022-07-16 09:41 | XR ---
EXAMINATION TYPE: XR chest 2V DATE OF EXAM: 07/16/2022 COMPARISON: 03/19/2016 TECHNIQUE: PA and lateral views submitted. HISTORY: Dysrhythmia FINDINGS: The lungs are clear and there is no pneumothorax, pleural effusion, or focal pneumonia. Atheroscler otic change aorta. Arthropathy of the shoulders with diffuse osteopenia. Surgical clips along the rig ht chest wall. No overt failure. Heart size normal. IMPRESSION: 1. No acute process.
[2022-07-16 09:43] LABS: ALT 17 U/L (4-34); AST 22 U/L (14-36); African American GFR (CKD) >90 (>60 ml/min/1.73 sqM); Albumin 3.5 g/dL (3.5-5.0); Alkaline Phosphatase 47 U/L (38-126); Anion Gap 10 mmol/L; Blood Urea Nitrogen 10 mg/dL (7-17); Calcium 9.2 mg/dL (8.4-10.2); Carbon Dioxide 23 mmol/L (22-30); Chloride 106 mmol/L (98-107); Glucose 142 mg/dL (74-99); Magnesium 1.9 mg/dL (1.6-2.3); Non-African American GFR(CKD) 81 (>60 ml/min/1.73 sqM); Potassium 3.5 mmol/L (3.5-5.1); Sodium 139 mmol/L (137-145); Total Bilirubin 0.2 mg/dL (0.2-1.3); Total Protein 5.7 g/dL (6.3-8.2)
[2022-07-16] MEDS ORDERED: ONDANSETRON 4 MG/2 ML VIAL IVP PRN (12:59)
[2022-07-16] MEDS ORDERED: NALOXONE 0.4 MG/ML 1 ML VIAL IV PRN (12:59)
[2022-07-16] MEDS: SODIUM CHLORIDE 0.9% 1,000 ML IV SCH (14:15)
[2022-07-16] MEDS: ACETAMINOPHEN TAB 325 MG TAB PO PRN (19:49)
--- NOTE | 2022-07-17 01:10 | P.HPIM ---
History of Present Illness H&P Date: 07/16/22 Chief Complaint: Dizziness Patient is a 81-year-old female with a known history of atrial fibrillation, hypertension, hyperlipidemia, history of right breast cancer status post lumpectomy, osteoarthritis and chronic migraine headaches and back pain presents to ER with complaints of chest pain mainly retrosternal and also complains of dizziness. Patient says that she felt very weak and sweaty and pale. Chest pain is 7 out of 10 intensity reactive. Mild shortness of breath associated. No nausea vomiting or abdominal pain or diarrhea. Patient was found to be in atrial fibrillation with rapid ventricular rate. Patient was brought to Hospital by EMS. Chest x-ray showed no acute process. EKG showed atrial fibrillation with rapid ventricular response. Laboratory data showed WBC 6.9 hemoglobin 13.3 and platelets 282 Sodium 139 potassium 3.5 chloride 106 bicarb is 23 BUN 10 and creatinine 0.7 blood sugar is 140 2H thank you Troponin 3 - albumin 3.5 magnesium 1.9 Review of Systems Constitutional: Patient denies any fever or chills . No generalized weakness or weight loss. Abdomen: Patient denied nausea vomiting and diarrhea and abdominal pain. Cardiovascular: Patient does complain of chest pain, dizziness and palpitations. No leg swelling.. Respiratory: patient denied any cough is from production. No shortness of breath Neurologic: Patient denied any numbness or tingling headache. Musculoskeletal: Patient denies any complaints of joint swelling or deformity. Skin: Negative Psychiatric: Negative Endocrine: No heat or cold intolerance. No recent weight gain. Genitourinary: No dysuria or hematuria. All other 14 point ROS negative except the above Past Medical History Past Medical History: Atrial Fibrillation, Cancer, Hyperlipidemia, Hypertension, Osteoarthritis (OA) Additional Past Medical History / Comment(s): Recent abdominal pain/weakness, R breast cancer/lumpectomy, basal skin cancer with removal, pt does not tolerate statins, arthritis in hands, knees, hips and back, chronic back pain, migraines until menopause, diarrhea since cholecystectomy. History of Any Multi-Drug Resistant Organisms: None Reported Past Surgical History: Cholecystectomy, Hysterectomy Additional Past Surgical History / Comment(s): R breast lumpectomy, skin cancer removed from face, L carpal tunnel release, bilateral cataracts removed/lens implants and then surgery bilateral eyes to remove a film, colonoscopy. Past Anesthesia/Blood Transfusion Reactions: Postoperative Nausea & Vomiting (PONV) Smoking Status: Never smoker - Past Family History Father Family Medical History: Cancer Additional Family Medical History / Comment(s): FATHER AT 73 YRS FROM COLON CANCER WITH METS. Mother Family Medical History: CVA/TIA Additional Family Medical History / Comment(s): LUPUS. Mother at age 94yrs Medications and Allergies Home Medications Medication Instructions Recorded Confirmed Type Aspirin 81 mg PO DAILY 03/19/16 07/16/22 History atenoloL [Tenormin] 50 mg PO DAILY 11/15/19 07/16/22 History Aspirin 325 mg PO ONCE PRN 07/16/22 07/16/22 History Fluticasone Nasal [place] [Flonase 1 spray EA NOSTRIL BID 07/16/22 07/16/22 History Nasal [place]] Allergies Allergy/AdvReac Type Severity Reaction Status Date / Time azithromycin [From Zithromax] Allergy Nausea & Verified 07/16/22 09:50 Vomiting & Diarrhea Penicillins Allergy Rash/Hives Verified 07/16/22 09:50 ezetimibe [From Zetia] AdvReac Unknown Nausea & Verified 07/16/22 09:50 Vomiting & Diarrhea Woserza-CJR-QlV Reductase AdvReac Unknown Nausea & Verified 07/16/22 09:50 Inhibitor Vomiting & [Shfxcsq-Dgh-Glw Reductase Diarrhea Inhibitor] Physical Exam Vitals: Vital Signs Temp Pulse Pulse Resp BP BP Pulse Ox 07/16/22 16:43 97.7 F 90 20 132/60 98 07/16/22 15:08 97.7 F 79 20 126/64 98 07/16/22 14:25 97.4 F L 98 18 98 07/16/22 14:20 101 H 18 131/84 98 07/16/22 12:50 115 H 19 134/90 98 07/16/22 10:48 89 20 188/74 98 07/16/22 10:36 93 18 113/87 98 07/16/22 09:45 146 H 20 126/74 97 07/16/22 09:19 128 H 20 129/85 96 07/16/22 09:07 127 H 07/16/22 08:57 97.8 F 72 18 125/99 95 Intake and Output 07/16/22 07/16/22 07/16/22 06:59 14:59 22:59 Intake Total 160 Balance 160 Intake: Intake, IV Titration 160 Amount Diltiazem 125 mg In 10 Sodium Chloride 0.9% 100 ml @ 5 MG/HR 5 mls/hr IV .Q24H MARCUS Rx#:[id number] Sodium Chloride 0.9% 1, 150 000 ml @ 75 mls/hr IV . [id number] MARCUS Rx#:[id number] Other: Weight 81.647 kg PHYSICAL EXAMINATION: Patient is lying in the bed comfortably, no acute distress, awake alert and oriented.. HEENT: Normocephalic. Neck is supple. Pupils reactive. Nostrils clear. Oral cavity is moist. Neck reveals no JVD, carotid bruits, or thyromegaly. CHEST EXAMINATION: Trachea is central. Symmetrical expansion. Lung oakley clear to auscultation and percussion. Chest wall tenderness with palpation. CARDIAC: Normal S1, S2 with no gallops. No murmurs , irregularly irregular. ABDOMEN: Soft. Bowel sounds normal. No organomegaly. No abdominal bruits. Extremities: reveal no edema. No clubbing or cyanosis Neurologically awake, alert, oriented x3 with well-coordinated movements. No focal deficits noted Skin: No rash or skin lesions. Psychiatric: Coperative. Nonsuicidal Musculoskeletal: No joint swelling or deformity. Normal range of motion. Results CBC & Chem 7: 07/17/22 02:57 07/16/22 09:15 Labs: Abnormal Lab Results - Last 24 Hours (Table) 07/16/22 Range/Units 09:15 Glucose 142 H (74-99) mg/dL Total Protein 5.7 L (6.3-8.2) g/dL Thrombosis Risk Factor Assmnt - DVT/VTE Prophylaxis DVT/VTE Prophylaxis: Pharmacologic Prophylaxis ordered - Choose All That Apply Any of the Below Risk Factors Present?: Yes Each Risk Factor Represents 2 Points: Malignancy Each Risk Factor Represents 3 Points: Age 75 years or older Other congenital or acquired thrombophilia - If yes, enter type in comment: No Thrombosis Risk Factor Assessment Total Risk Factor Score: 5 Thrombosis Risk Factor Assessment Level: High Risk Assessment and Plan Assessment: Paroxysmal atrial fibrillation with a rapid ventricular rate. Chest pain. Musculoskeletal and reproducible. Hypertension Hyperlipidemia Osteoarthritis Previous history of cholecystectomy Chronic back pain History of migraine headaches History of right breast cancer status post lumpectomy DVT prophylaxis. On Heparin drip Plan: Patient will be continued on Cardizem drip. Continue the telemetry monitoring and serial troponins and EKGs. Patient will be started on anticoagulation with heparin drip and cardiology evaluation. Follow-up TSH level. Continue with home medications. Discussed with her daughter at bedside in detail. Time with Patient: Greater than 30
[2022-07-17] MEDS: SODIUM CHLORIDE 0.9% 1,000 ML IV SCH (02:06)
[2022-07-17] MEDS ORDERED: HEPARIN SODIUM 1,000 UN/ML (10ML VL) IV PRN (02:44)
[2022-07-17] MEDS ORDERED: HEPARIN SODIUM 1,000 UN/ML (10ML VL) IV ONE (02:44)
[2022-07-17] MEDS ORDERED: HEPARIN SOD,PORK IN 0.45% NACL 25,000 UNIT in 0.45% NACL 1 250ML.BAG IV SCH (02:45)
[2022-07-17] MEDS ORDERED: NITROGLYCERIN SL TABS 0.4 MG TAB SUBLINGUAL STA (02:47)
[2022-07-17] MEDS ORDERED: DILTIAZEM DRIP BOLUS FROM BAG 1 MG SOLN IV ONE (03:00)
[2022-07-17] MEDS ORDERED: ASPIRIN 81 MG PO STA (03:01)
[2022-07-17] MEDS: FLUTICASONE 50MCG/SPRAY NASAL 16GM EA NOSTRIL SCH ×3 (03:08→21:21)
[2022-07-17] MEDS: DILTIAZEM 125 MG in SODIUM CHLORIDE 0.9% 100 ML IV SCH ×2 (03:13→16:18)
[2022-07-17 03:17] LABS: Basophils % (A) 1 %; Eosinophils # (A) 0.2 k/uL (0-0.7); Eosinophils % (A) 3 %; HCT 38.4 % (34.0-46.0); HGB 12.5 gm/dL (11.4-16.0); Lymphocytes % (A) 35 %; MCH 30.7 pg (25.0-35.0); MCHC 32.6 g/dL (31.0-37.0); MCV 94.1 fL (80.0-100.0); Mean Platelet Volume 8.2; Monocytes # (A) 0.2 k/uL (0-1.0); Monocytes % (A) 4 %; Neutrophils # (A) 3.2 k/uL (1.3-7.7); Neutrophils % (A) 56 %; Platelet Count 261 k/uL (150-450); RBC 4.08 m/uL (3.80-5.40); WBC 5.7 k/uL (3.8-10.6)
[2022-07-17 03:30] LABS: Partial Thromboplastin Time 22.3 sec (22.0-30.0); Prothrombin Time 10.7 sec (9.0-12.0)
[2022-07-17] MEDS: ASPIRIN 81 MG PO SCH (08:29)
[2022-07-17 08:35] VITALS: RESP 16
[2022-07-17] MEDS ORDERED: atenoloL 25 MG TAB PO STA (08:55)
[2022-07-17] MEDS ORDERED: atenoloL 50 MG TAB PO SCH (09:00)
--- NOTE | 2022-07-17 11:00 | CA ---
Transthoracic Echo Report Name: Nicole Mansfield Age: 81 Gender: F : 1940 Exam Date: 07/17/2022 09:39 Exam Location: [facility] Ht (in): 66 Wt (lb): 180 Ordering Physician: Zulema Martinez Attending/Referring Phys: [id number], Juan [employer] Urszula Miller, MARLEEN Procedure CPT: Indications: LV function Cardiac Hx: Technical Quality: Fair Contrast 1: Total Dose (mL): Contrast 2: Total Dose (mL): MEASUREMENTS (Male / Female) Normal Values 2D ECHO LV Diastolic Diameter PLAX 4.0 cm 4.2 - 5.9 / 3.9 - 5.3 cm LV Systolic Diameter PLAX 2.5 cm IVS Diastolic Thickness 1.0 cm 0.6 - 1.0 / 0.6 - 0.9 cm LVPW Diastolic Thickness 1.0 cm 0.6 - 1.0 / 0.6 - 0.9 cm LV Relative Wall Thickness 0.5 RV Internal Dim ED PLAX 2.8 cm LVOT Diameter 2.3 cm LA Systolic Diameter LX 3.4 cm 3.0 - 4.0 / 2.7 - 3.8 cm LA Volume 55.3 cm??? 18 - 58 / 22 - 52 cm??? M-MODE Aortic Root Diameter MM 2.9 cm MV E Point Septal Separation 0.6 cm AV Cusp Separation MM 1.4 cm DOPPLER AV Peak Velocity 136.6 cm/s AV Peak Gradient 7.5 mmHg AV Mean Velocity 110.3 cm/s AV Mean Gradient 5.2 mmHg AV Velocity Time Integral 25.4 cm LVOT Peak Velocity 91.0 cm/s LVOT Peak Gradient 3.3 mmHg AV Area Cont Eq pk 2.7 cm??? MV Area PHT 5.0 cm??? MV Deceleration Time 200.8 ms TR Peak Velocity 212.7 cm/s TR Peak Gradient 18.1 mmHg Right Ventricular Systolic Press 22.7 mmHg FINDINGS Left Ventricle Left ventricular ejection fraction is estimated at 50-55 %. Left ventricular cavity size normal. Left ventricular wall thickness normal. Right Ventricle Normal right ventricular size and function. Right ventricular systolic pressure within normal limits. Right Atrium Normal right atrial size. Left Atrium Mildly increased left atrial volume. No evidence for an atrial septal defect. Mitral Valve Mitral valve thickened. Mild mitral annular calcification. Trace to mild mitral regurgitation. Aortic Valve Trileaflet aortic valve. No aortic valve stenosis or regurgitation. Tricuspid Valve Mild tricuspid regurgitation. Pulmonic Valve Trace pulmonic regurgitation. Pericardium Normal pericardium. No pericardial effusion. Aorta Normal size aortic root and proximal ascending aorta. CONCLUSIONS Normal left ventricular dimension and systolic function Previewed by: Dr. Samm Doyle MD (Electronically Signed) Final Date: 17 July 2022 10:59
[2022-07-17] MEDS ORDERED: APIXABAN 5 MG TAB PO SCH (11:45)
--- NOTE | 2022-07-17 11:51 | P.CRDCN ---
History of Present Illness Consult date: 07/17/22 History of present illness: HISTORY OF PRESENT ILLNESS: This is a 81-year-old female with a past medical history significant for paroxysmal atrial tachycardia, hyperlipidemia with statin intolerance, sick sinus syndrome, and carotid arthrosclerosis. Patient follows in the office with Dr. Chong. We have been asked to see the patient in consultation for atrial fibrillation. Patient examined at the bedside. Patient presented to the hospital for chief complaint of chest pain and palpitations. Patient reports her pain was in the middle of her chest. She denied any radiation of the pain. She did report feeling diaphoretic. Patient was found to be in atrial fibrillation with RVR. Patient does not have a history of atrial fibrillation. The patient was started on IV heparin and IV Cardizem. At the time of examination the patient is currently on a Cardizem drip at 10 mg an hour. She remains in atrial fibrillation with a heart rate in the 110s. She denies any further chest pain or pressure. * EKG reveals atrial fibrillation with RVR * Chest xray negative for acute process * Laboratory data: W BC 5.7. Hemoglobin 12.5. Platelet count 261. D-dimer 0.57. Sodium 139. Potassium 3.5. BUN 10. Creatinine 0.71. Troponin negative 5. * Current home cardiac medications include aspirin 81 mg daily and atenolol 50 mg daily * Echocardiogram obtained revealing ejection fraction 50-55%, trace to mild MR, mild TR * Patient underwent dobutamine stress test in 2013 which was negative for ischemia * Cardiac catheterization history: unknown REVIEW OF SYSTEMS: At the time of my exam: CONSTITUTIONAL: Denies fever or chills. HEENT: Denies blurred vision, vision changes, or eye pain. Denies hemoptysis CARDIOVASCULAR: Denies chest pain. Denies orthopnea. Denies PND. Denies palpitations RESPIRATORY: Denies shortness of breath. GASTROINTESTINAL: Denies abdominal pain. Denies nausea or vomiting. HEMATOLOGIC: Denies bleeding disorders. GENITOURINARY: Denies any blood in urine. SKIN: Denies pruitis. Denies rash. PHYSICAL EXAM: VITAL SIGNS: Reviewed. GENERAL: Well-developed in no acute distress. HEENT: Head is normocephalic. Pupils are equal, round. Sclerae anicteric. Mucous membranes of the mouth are moist. Neck supple. No JVD or thyromegaly LUNGS: Respirations even and unlabored. Lungs essentially clear to auscultation bilaterally. HEART: Tachycardic. Irregular rate and rhythm. S1 and S2 heard. ABDOMEN: Soft. Nondistended. Nontender. EXTREMITIES: Normal range of motion. No clubbing or cyanosis. Peripheral pulses intact. No lower extremity edema NEUROLOGIC: Awake and alert. Oriented x 3. ASSESSMENT: Chest pain, atypical, troponin negative 5 New onset atrial fibrillation with RVR History of paroxysmal atrial tachycardia Hyperlipidemia with statin intolerance History of sick sinus syndrome Carotid arthrosclerosis Possible subclinical hyperthyroidism. PLAN: An acute coronary event has been ruled out 2D echo obtained and reviewed Check TSH Discontinue IV heparin. Begin Eliquis 5mg BID Increase atenolol to 75mg daily Wean off Cardizem drip as heart rate will tolerate Further recommendations pending patient course Possible subclinical hyperthyroidism. Check repeat thyroid levels given hyperthyroidism may be exacerbating Afib. Nurse practitioner note has been reviewed by physician. Signing provider agrees with the documented findings, assessment, and plan of care. Past Medical History Past Medical History: Atrial Fibrillation, Cancer, Hyperlipidemia, Hypertension, Osteoarthritis (OA) Additional Past Medical History / Comment(s): Recent abdominal pain/weakness, R breast cancer/lumpectomy, basal skin cancer with removal, pt does not tolerate statins, arthritis in hands, knees, hips and back, chronic back pain, migraines until menopause, diarrhea since cholecystectomy. History of Any Multi-Drug Resistant Organisms: None Reported Past Surgical History: Cholecystectomy, Hysterectomy Additional Past Surgical History / Comment(s): R breast lumpectomy, skin cancer removed from face, L carpal tunnel release, bilateral cataracts removed/lens implants and then surgery bilateral eyes to remove a film, colonoscopy. Past Anesthesia/Blood Transfusion Reactions: Postoperative Nausea & Vomiting (PONV) Smoking Status: Never smoker - Past Family History Father Family Medical History: Cancer Additional Family Medical History / Comment(s): FATHER AT 73 YRS FROM COLON CANCER WITH METS. Mother Family Medical History: CVA/TIA Additional Family Medical History / Comment(s): LUPUS. Mother at age 94yrs Medications and Allergies Home Medications Medication Instructions Recorded Confirmed Type Aspirin 81 mg PO DAILY 03/19/16 07/16/22 History atenoloL [Tenormin] 50 mg PO DAILY 11/15/19 07/16/22 History Aspirin 325 mg PO ONCE PRN 07/16/22 07/16/22 History Fluticasone Nasal [place] [Flonase 1 spray EA NOSTRIL BID 07/16/22 07/16/22 History Nasal [place]] Apixaban [Eliquis] 5 mg PO BID #60 tab 07/17/22 Rx Allergies Allergy/AdvReac Type Severity Reaction Status Date / Time azithromycin [From Zithromax] Allergy Nausea & Verified 07/16/22 09:50 Vomiting & Diarrhea Penicillins Allergy Rash/Hives Verified 07/16/22 09:50 ezetimibe [From Zetia] AdvReac Unknown Nausea & Verified 07/16/22 09:50 Vomiting & Diarrhea Ruhxyju-QHF-BjI Reductase AdvReac Unknown Nausea & Verified 07/16/22 09:50 Inhibitor Vomiting & [Eebqbzj-Qis-Rma Reductase Diarrhea Inhibitor] Physical Exam Vitals: Vital Signs Temp Pulse Pulse Resp BP BP Pulse Ox 07/17/22 11:09 90 16 114/69 96 07/17/22 08:26 95 07/17/22 08:00 97.6 F 117 H 16 110/61 97 07/17/22 04:00 121 H 22 104/58 96 07/17/22 02:00 121 H 07/17/22 00:00 98.1 F 98 20 125/57 97 07/16/22 20:00 98.1 F 90 18 129/78 97 07/16/22 16:43 97.7 F 90 20 132/60 98 07/16/22 15:08 97.7 F 79 20 126/64 98 07/16/22 14:25 97.4 F L 98 18 98 07/16/22 14:20 101 H 18 131/84 98 07/16/22 12:50 115 H 19 134/90 98 Intake and Output 07/16/22 07/17/22 07/17/22 22:59 06:59 14:59 Intake Total 160 Balance 160 Intake: Intake, IV Titration 160 Amount Diltiazem 125 mg In 10 Sodium Chloride 0.9% 100 ml @ 5 MG/HR 5 mls/hr IV .Q24H [facility] Rx#:[id number] Sodium Chloride 0.9% 1, 150 000 ml @ 75 mls/hr IV . [id number] [facility] Rx#:[id number] Other: Voiding Method Toilet Toilet # Voids 1 2 1 Results 07/17/22 02:57 07/16/22 09:15 Cardiac Enzymes 07/16/22 07/16/22 07/17/22 Range/Units 15:09 18:11 02:57 Troponin I 0.022 0.019 0.013 (0.000-0.034) ng/mL 07/17/22 Range/Units 06:43 Troponin I <0.012 (0.000-0.034) ng/mL Coagulation 07/17/22 07/17/22 Range/Units 02:57 11:01 PT 10.7 (9.0-12.0) sec APTT 22.3 51.5 H (22.0-30.0) sec CBC 07/17/22 Range/Units 02:57 WBC 5.7 (3.8-10.6) k/uL RBC 4.08 (3.80-5.40) m/uL Hgb 12.5 (11.4-16.0) gm/dL Hct 38.4 (34.0-46.0) % Plt Count 261 (150-450) k/uL Current Medications Generic Name Dose Route Start Last Admin Trade Name Freq PRN Reason Stop Dose Admin Acetaminophen 650 mg 07/16/22 12:59 07/16/22 19:49 Acetaminophen Tab 325 Mg Tab PO 650 mg Q6HR PRN Administration Mild Pain or Fever > 100.5 Aspirin 81 mg 07/17/22 09:00 07/17/22 08:29 Aspirin 81 Mg PO 81 mg DAILY [facility] Administration Atenolol 75 mg 07/18/22 09:00 Atenolol 25 Mg Tab PO DAILY [facility] Fluticasone Propionate 1 spray 07/16/22 21:00 07/17/22 08:30 Fluticasone 50mcg/[place] Nasal 16gm EA NOSTRIL 1 spray BID [facility] Administration Heparin Sodium (Porcine) 0 unit 07/17/22 02:44 Heparin Sodium 1,000 Un/Ml (10ml Vl) IV PER PROTOCOL PRN Low PTT Protocol Sodium Chloride 1,000 mls @ 75 mls/hr 07/16/22 13:00 07/17/22 02:06 Saline 0.9% IV 75 mls/hr .[id number] [facility] Administration Heparin Sodium/Sodium Chloride 250 mls @ 9.798 mls/hr 07/17/22 02:45 07/17/22 03:09 25,000 unit/ Sodium Chloride IV 12 units/kg/hr .Q24H [facility] 9.798 mls/hr Administration Protocol 12 UNITS/KG/HR Diltiazem HCl 125 mg/ Sodium 125 mls @ 10 mls/hr 07/17/22 03:00 07/17/22 03:13 Chloride IV 10 mg/hr .[id number] [facility] 10 mls/hr Administration 10 MG/HR Naloxone HCl 0.2 mg 07/16/22 12:59 Naloxone 0.4 Mg/Ml 1 Ml Vial IV Q2M PRN Opioid Reversal Ondansetron HCl 4 mg 07/16/22 12:59 Ondansetron 4 Mg/2 Ml Vial IVP Q8HR PRN Nausea And Vomiting Intake and Output 07/16/22 07/17/22 07/17/22 22:59 06:59 14:59 Intake Total 160 Balance 160 Intake: Intake, IV Titration 160 Amount Diltiazem 125 mg In 10 Sodium Chloride 0.9% 100 ml @ 5 MG/HR 5 mls/hr IV .Q24H [facility] Rx#:[id number] Sodium Chloride 0.9% 1, 150 000 ml @ 75 mls/hr IV . [id number] [facility] Rx#:[id number] Other: Voiding Method Toilet Toilet # Voids 1 2 1 07/17/22 02:57 07/16/22 09:15
[2022-07-17] MEDS: ACETAMINOPHEN TAB 325 MG TAB PO PRN (13:36)
[2022-07-17 15:24] VITALS: BMI 29.0
[2022-07-17] MEDS: APIXABAN 5 MG TAB PO SCH (21:20)
[2022-07-18 01:08] VITALS: TEMP 97.6
[2022-07-18] MEDS: DILTIAZEM 125 MG in SODIUM CHLORIDE 0.9% 100 ML IV SCH (03:52)
[2022-07-18 08:09] LABS: Basophils % (A) 1 %; Eosinophils # (A) 0.1 k/uL (0-0.7); Eosinophils % (A) 1 %; HGB 12.8 gm/dL (11.4-16.0); Lymphocytes # (A) 1.3 k/uL (1.0-4.8); Lymphocytes % (A) 25 %; MCH 29.6 pg (25.0-35.0); MCHC 31.9 g/dL (31.0-37.0); Mean Platelet Volume 8.6; Monocytes # (A) 0.2 k/uL (0-1.0); Monocytes % (A) 5 %; Neutrophils # (A) 3.4 k/uL (1.3-7.7); Neutrophils % (A) 67 %; Platelet Count 262 k/uL (150-450); RDW 12.4 % (11.5-15.5); WBC 5.2 k/uL (3.8-10.6)
[2022-07-18 08:21] LABS: Prothrombin Time 10.8 sec (9.0-12.0)
[2022-07-18] MEDS ORDERED: atenoloL 25 MG TAB PO SCH (09:00)
[2022-07-18] MEDS: APIXABAN 5 MG TAB PO SCH (09:08)
[2022-07-18] MEDS: ASPIRIN 81 MG PO SCH (09:08)
[2022-07-18] MEDS: FLUTICASONE 50MCG/SPRAY NASAL 16GM EA NOSTRIL SCH (09:09)
[2022-07-18] MEDS ORDERED: AMIODARONE 200 MG TAB PO SCH (09:45)
[2022-07-18] MEDS ORDERED: atenoloL 50 MG TAB PO SCH (09:45)
[2022-07-18 12:25] VITALS: BP 120/60; PULSE 89
--- NOTE | 2022-07-18 12:56 | P.PN ---
Subjective Progress Note Date: 07/18/22 HISTORY OF PRESENT ILLNESS: This is a 81-year-old female with a past medical history significant for paroxysmal atrial tachycardia, hyperlipidemia with statin intolerance, sick sinus syndrome, and carotid arthrosclerosis. Patient follows in the office with Dr. Chong. We have been asked to see the patient in consultation for atrial fibrillation. Patient examined at the bedside. Patient presented to the hospital for chief complaint of chest pain and palpitations. Patient reports her pain was in the middle of her chest. She denied any radiation of the pain. She did report feeling diaphoretic. Patient was found to be in atrial fibrillation with RVR. Patient does not have a history of atrial fibrillation. The patient was started on IV heparin and IV Cardizem. At the time of examination the patient is currently on a Cardizem drip at 10 mg an hour. She remains in atrial fibrillation with a heart rate in the 110s. She denies any further chest pain or pressure. * EKG reveals atrial fibrillation with RVR * Chest xray negative for acute process * Laboratory data: W BC 5.7. Hemoglobin 12.5. Platelet count 261. D-dimer 0.57. Sodium 139. Potassium 3.5. BUN 10. Creatinine 0.71. Troponin negative 5. * Current home cardiac medications include aspirin 81 mg daily and atenolol 50 mg daily * Echocardiogram obtained revealing ejection fraction 50-55%, trace to mild MR, mild TR * Patient underwent dobutamine stress test in 2013 which was negative for ischemia * Cardiac catheterization history: unknown 07/18/2022 Patient examined this morning at the bedside. Patient denies chest pain or pressure. She denies shortness of breath. She denies palpitations. Telemetry reveals atrial fibrillation with a heart rate in the 90s. She remains on IV Cardizem at 10 mg an hour. Echocardiogram completed revealing ejection fraction 50-55%, trace to mild mitral regurgitation, mild tricuspid regurgitation. PHYSICAL EXAM: VITAL SIGNS: Reviewed. GENERAL: Well-developed in no acute distress. HEENT: Head is normocephalic. Pupils are equal, round. Sclerae anicteric. Mucous membranes of the mouth are moist. Neck supple. No JVD or thyromegaly LUNGS: Respirations even and unlabored. Lungs essentially clear to auscultation bilaterally. HEART: Tachycardic. Irregular rate and rhythm. S1 and S2 heard. ABDOMEN: Soft. Nondistended. Nontender. EXTREMITIES: Normal range of motion. No clubbing or cyanosis. Peripheral pulses intact. No lower extremity edema NEUROLOGIC: Awake and alert. Oriented x 3. ASSESSMENT: Chest pain, atypical, troponin negative 5 New onset atrial fibrillation with RVR History of paroxysmal atrial tachycardia Hyperlipidemia with statin intolerance History of sick sinus syndrome Carotid arthrosclerosis Possible subclinical hyperthyroidism PLAN: Await repeat thyroid studies Increase atenolol to 100 mg daily Begin amiodarone 400 mg twice a day Continue anticoagulation with a request Wean off Cardizem drip with heart rate will tolerate Will plan for outpatient stress test Further recommendations pending patient course Nurse practitioner note has been reviewed by physician. Signing provider agrees with the documented findings, assessment, and plan of care. Objective - Vital Signs Vital signs: Vital Signs Temp 97.6 F 07/18/22 04:00 Pulse 89 07/18/22 12:23 Resp 16 07/18/22 12:23 BP 120/60 07/18/22 12:23 Pulse Ox 95 07/18/22 12:23 FiO2 Intake & Output 07/17/22 07/18/22 07/18/22 18:59 06:59 18:59 Intake Total 125 115.667 Balance 125 115.667 Weight 81.647 kg Intake: Intake, IV Titration 125 115.667 Amount Diltiazem 125 mg In 125 115.667 Sodium Chloride 0.9% 100 ml @ 5 MG/HR 5 mls/hr IV .Q24H [facility] Rx#:[id number] Other: Voiding Method Toilet Toilet Toilet # Voids 1 2 - Labs CBC & Chem 7: 07/18/22 07:13 07/16/22 09:15 Labs: Abnormal Lab Results - Last 24 Hours (Table) 07/18/22 Range/Units 07:13 TSH <0.015 L (0.465-4.680) mIU/L
== END 2022-07-18 16:21 | disposition home or self-care (01) | DRG 310 ==
LOC: EC 08:56 → 3SCARD 12:59
PROVIDERS: ADMIT Internal Medicine; ATTEND Internal Medicine
DX: I48.0 Paroxysmal atrial fibrillation (principal); E05.90 Thyrotoxicosis, unspecified without thyrotoxic crisis or storm; E78.5 Hyperlipidemia, unspecified; I10 Essential (primary) hypertension; R07.89 Other chest pain; G43.909 Migraine, unspecified, not intractable, without status migrainosus; M19.90 Unspecified osteoarthritis, unspecified site; G89.29 Other chronic pain; M54.9 Dorsalgia, unspecified; Z79.82 Long term (current) use of aspirin; Z79.899 Other long term (current) drug therapy; Z85.3 Personal history of malignant neoplasm of breast; Z85.828 Personal history of other malignant neoplasm of skin; Z90.710 Acquired absence of both cervix and uterus; Z90.49 Acquired absence of other specified parts of digestive tract; Z87.19 Personal history of other diseases of the digestive system; Z88.1 Allergy status to other antibiotic agents; Z88.0 Allergy status to penicillin; Z88.8 Allergy status to other drugs, medicaments and biological substances; Z80.42 Family history of malignant neoplasm of prostate; Z80.0 Family history of malignant neoplasm of digestive organs; Z80.8 Family history of malignant neoplasm of other organs or systems; Z82.3 Family history of stroke
CPT/HCPCS: 36415; 71046; 74022; 80053; 81001; 83690; 83735; 84439; 84443; 84484; 85025; 85379; 85610; 85730; 93005; 93306; 94760; 96365; 96366; 99291

== ENCOUNTER 2022-07-28 07:33 | Observation (INO) | payer MEDICARE, BC ==
[2022-07-28] MEDS ORDERED: NITROGLYCERIN SL TABS 0.4 MG TAB SUBLINGUAL STA ×3 (07:48)
[2022-07-28] MEDS ORDERED: ASPIRIN 81 MG PO STA (07:48)
--- NOTE | 2022-07-28 07:59 | ED ---
General Adult HPI - General Chief complaint: Chest Pain Stated complaint: Chest Pain/Hypertension Time Seen by Provider: 07/28/22 07:44 Source: patient, RN notes reviewed Mode of arrival: ambulatory Limitations: no limitations - History of Present Illness Initial comments: Patient is a pleasant 81-year-old female presenting to the emergency department with concerns with chest discomfort. Onset of symptoms was when she woke. Patient took her blood pressure at home at 180 systolic. Patient states discomfort has somewhat improved and is currently 5-6/10. Discomfort feels like pressure. Mild dyspnea. Mild sweatiness. No nausea. No history of similar symptoms previously. Patient recently had medication changes secondary to atrial fibrillation diagnosis. Patient has had wound leg edema, no calf pain. - Related Data Home Medications Medication Instructions Recorded Confirmed Aspirin 81 mg PO DAILY 03/19/16 07/16/22 Fluticasone Nasal [place] [Flonase 1 spray EA NOSTRIL BID 07/16/22 07/16/22 Nasal [place]] Previous Rx's Medication Instructions Recorded Apixaban [Eliquis] 5 mg PO BID #60 tab 07/17/22 Acetaminophen Tab [Tylenol] 650 mg PO Q6HR PRN tab 07/18/22 Amiodarone [Cordarone] 200 mg PO DAILY #60 tab 07/18/22 atenoloL [Tenormin] 100 mg PO DAILY 30 Days #60 tab 07/18/22 Allergies Allergy/AdvReac Type Severity Reaction Status Date / Time azithromycin [From Zithromax] Allergy Nausea & Verified 07/28/22 07:43 Vomiting & Diarrhea Penicillins Allergy Rash/Hives Verified 07/28/22 07:43 ezetimibe [From Zetia] AdvReac Unknown Nausea & Verified 07/28/22 07:43 Vomiting & Diarrhea Groqftx-YKD-QeF Reductase AdvReac Unknown Nausea & Verified 07/28/22 07:43 Inhibitor Vomiting & [Dwcatrq-Qhs-Lfi Reductase Diarrhea Inhibitor] Review of Systems ROS Statement: Those systems with pertinent positive or pertinent negative responses have been documented in the HPI. ROS Other: All systems not noted in ROS Statement are negative. Constitutional: Denies: fever Eyes: Denies: eye pain ENT: Denies: ear pain Respiratory: Denies: cough Cardiovascular: Reports: as per HPI, chest pain Endocrine: Denies: fatigue Gastrointestinal: Denies: abdominal pain Genitourinary: Denies: dysuria Musculoskeletal: Denies: back pain Skin: Denies: rash Neurological: Denies: weakness Past Medical History Past Medical History: Atrial Fibrillation, Cancer, Hyperlipidemia, Hypertension, Osteoarthritis (OA) Additional Past Medical History / Comment(s): Recent abdominal pain/weakness, R breast cancer/lumpectomy, basal skin cancer with removal, pt does not tolerate statins, arthritis in hands, knees, hips and back, chronic back pain, migraines until menopause, diarrhea since cholecystectomy. History of Any Multi-Drug Resistant Organisms: None Reported Past Surgical History: Cholecystectomy, Hysterectomy Additional Past Surgical History / Comment(s): R breast lumpectomy, skin cancer removed from face, L carpal tunnel release, bilateral cataracts removed/lens implants and then surgery bilateral eyes to remove a film, colonoscopy. Past Anesthesia/Blood Transfusion Reactions: Postoperative Nausea & Vomiting (PONV) Past Psychological History: No Psychological Hx Reported Smoking Status: Never smoker Past Alcohol Use History: None Reported Past Drug Use History: None Reported - Past Family History Father Family Medical History: Cancer Additional Family Medical History / Comment(s): FATHER AT 73 YRS FROM COLON CANCER WITH METS. Mother Family Medical History: CVA/TIA Additional Family Medical History / Comment(s): LUPUS. Mother at age 94yrs General Exam Limitations: no limitations General appearance: alert, in no apparent distress Head exam: Present: normocephalic Eye exam: Present: normal appearance Neck exam: Present: normal inspection Respiratory exam: Present: normal lung sounds bilaterally Cardiovascular Exam: Present: regular rate, normal rhythm Expanded Peripheral pulses: 2+: Radial (R), Radial (L), Dorsalis Pedis (R), Dorsalis Pedis (L) GI/Abdominal exam: Present: soft. Absent: tenderness Extremities exam: Present: pedal edema (Trace bilateral). Absent: calf tenderness Neurological exam: Present: alert Psychiatric exam: Present: normal affect, normal mood Skin exam: Present: normal color Course Vital Signs 07/28/22 07/28/22 07/28/22 07:39 07:57 08:12 Temperature 97.8 F 98 F Pulse Rate 105 H 58 L Respiratory 18 16 16 Rate Blood Pressure 158/77 182/79 O2 Sat by Pulse 98 96 Oximetry 07/28/22 07/28/22 08:25 09:07 Temperature 98 F Pulse Rate 58 L 56 L Respiratory 16 16 Rate Blood Pressure 155/84 148/71 O2 Sat by Pulse 98 96 Oximetry EKG Findings - EKG Comments: EKG Findings:: Sinus bradycardia 58. SC 157. QRS 95. QT 456. QTc 452. Normal axis. Normal QRS. No acute ST change. Medical Decision Making - Medical Decision Making Patient reevaluated and symptom-free following a glycerin. Patient and family updated on results and plan. Case discussed with Dr. Gómez, who will admit covering hospital observation call. - Lab Data Result diagrams: 07/28/22 08:00 07/28/22 08:00 Lab Results 07/28/22 07/28/22 07/28/22 Range/Units 08:00 08:00 08:00 WBC 6.1 (3.8-10.6) k/uL RBC 4.10 (3.80-5.40) m/uL Hgb 12.2 (11.4-16.0) gm/dL Hct 37.9 (34.0-46.0) % MCV 92.3 (80.0-100.0) fL MCH 29.8 (25.0-35.0) pg MCHC 32.3 (31.0-37.0) g/dL RDW 12.9 (11.5-15.5) % Plt Count 256 (150-450) k/uL MPV 8.9 Neutrophils % 74 % Lymphocytes % 19 % Monocytes % 4 % Eosinophils % 2 % Basophils % 0 % Neutrophils # 4.5 (1.3-7.7) k/uL Lymphocytes # 1.2 (1.0-4.8) k/uL Monocytes # 0.3 (0-1.0) k/uL Eosinophils # 0.1 (0-0.7) k/uL Basophils # 0.0 (0-0.2) k/uL PT 11.0 (9.0-12.0) sec INR 1.0 (<1.2) APTT 27.2 (22.0-30.0) sec D-Dimer 0.34 (<0.60) mg/L FEU Sodium 140 (137-145) mmol/L Potassium 3.4 L (3.5-5.1) mmol/L Chloride 106 (98-107) mmol/L Carbon Dioxide 26 (22-30) mmol/L Anion Gap 8 mmol/L BUN 10 (7-17) mg/dL Creatinine 0.72 (0.52-1.04) mg/dL Est GFR (CKD-EPI)AfAm >90 (>60 ml/min/1.73 sqM) Est GFR (CKD-EPI)NonAf 80 (>60 ml/min/1.73 sqM) Glucose 104 H (74-99) mg/dL Calcium 9.1 (8.4-10.2) mg/dL Magnesium 1.8 (1.6-2.3) mg/dL Total Bilirubin 0.5 (0.2-1.3) mg/dL AST 23 (14-36) U/L ALT 24 (4-34) U/L Alkaline Phosphatase 50 (38-126) U/L Troponin I (0.000-0.034) ng/mL NT-Pro-B Natriuret Pep pg/mL Total Protein 5.9 L (6.3-8.2) g/dL Albumin 3.9 (3.5-5.0) g/dL Amylase 41 (30-110) U/L Lipase 28 (23-300) U/L 07/28/22 07/28/22 Range/Units 08:00 08:00 WBC (3.8-10.6) k/uL RBC (3.80-5.40) m/uL Hgb (11.4-16.0) gm/dL Hct (34.0-46.0) % MCV (80.0-100.0) fL MCH (25.0-35.0) pg MCHC (31.0-37.0) g/dL RDW (11.5-15.5) % Plt Count (150-450) k/uL MPV Neutrophils % % Lymphocytes % % Monocytes % % Eosinophils % % Basophils % % Neutrophils # (1.3-7.7) k/uL Lymphocytes # (1.0-4.8) k/uL Monocytes # (0-1.0) k/uL Eosinophils # (0-0.7) k/uL Basophils # (0-0.2) k/uL PT (9.0-12.0) sec INR (<1.2) APTT (22.0-30.0) sec D-Dimer (<0.60) mg/L FEU Sodium (137-145) mmol/L Potassium (3.5-5.1) mmol/L Chloride (98-107) mmol/L Carbon Dioxide (22-30) mmol/L Anion Gap mmol/L BUN (7-17) mg/dL Creatinine (0.52-1.04) mg/dL Est GFR (CKD-EPI)AfAm (>60 ml/min/1.73 sqM) Est GFR (CKD-EPI)NonAf (>60 ml/min/1.73 sqM) Glucose (74-99) mg/dL Calcium (8.4-10.2) mg/dL Magnesium (1.6-2.3) mg/dL Total Bilirubin (0.2-1.3) mg/dL AST (14-36) U/L ALT (4-34) U/L Alkaline Phosphatase (38-126) U/L Troponin I <0.012 (0.000-0.034) ng/mL NT-Pro-B Natriuret Pep 773 pg/mL Total Protein (6.3-8.2) g/dL Albumin (3.5-5.0) g/dL Amylase (30-110) U/L Lipase (23-300) U/L - Radiology Data Radiology results: image reviewed (Chest x-ray shows right lower lobe opacity somewhat flat could represent atelectasis present on prior chest x-ray.) Disposition Clinical Impression: Chest pain Disposition: ADMITTED IP TO THIS HOSP Is patient prescribed a controlled substance at d/c from ED?: No Referrals: Marisol Blair MD [Primary Care Provider] - 1-2 days Time of Disposition: 09:52
[2022-07-28 08:29] LABS: Basophils % (A) 0 %; Eosinophils # (A) 0.1 k/uL (0-0.7); Eosinophils % (A) 2 %; HCT 37.9 % (34.0-46.0); HGB 12.2 gm/dL (11.4-16.0); Lymphocytes # (A) 1.2 k/uL (1.0-4.8); Lymphocytes % (A) 19 %; MCH 29.8 pg (25.0-35.0); MCHC 32.3 g/dL (31.0-37.0); MCV 92.3 fL (80.0-100.0); Mean Platelet Volume 8.9; Monocytes # (A) 0.3 k/uL (0-1.0); Monocytes % (A) 4 %; Neutrophils # (A) 4.5 k/uL (1.3-7.7); Neutrophils % (A) 74 %; Platelet Count 256 k/uL (150-450); RDW 12.9 % (11.5-15.5); WBC 6.1 k/uL (3.8-10.6)
--- NOTE | 2022-07-28 08:52 | XR ---
EXAMINATION TYPE: XR chest 2V DATE OF EXAM: 07/28/2022 8:19 AM COMPARISON: Chest radiographs from 07/16/2022 TECHNIQUE: XR chest 2V Frontal and lateral views of the chest. CLINICAL INDICATION:Female, 81 years old with history of Chest Pain; FINDINGS: Lungs/Pleura: Right lower lobe flat like opacities. There is no evidence of pleural effusion, focal c onsolidation, or pneumothorax. Pulmonary vascularity: Unremarkable. Heart/mediastinum: Cardiomediastinal silhouette is unremarkable. Musculoskeletal: No acute osseous pathology. Surgical clips project over the right lower lung. IMPRESSION: Right lower lobe opacities the somewhat flat appearance and could represent atelectasis are present o n prior 07/16/2022
[2022-07-28 08:58] LABS: ALT 24 U/L (4-34); AST 23 U/L (14-36); African American GFR (CKD) >90 (>60 ml/min/1.73 sqM); Albumin 3.9 g/dL (3.5-5.0); Alkaline Phosphatase 50 U/L (38-126); Amylase 41 U/L (30-110); Anion Gap 8 mmol/L; Blood Urea Nitrogen 10 mg/dL (7-17); Calcium 9.1 mg/dL (8.4-10.2); Carbon Dioxide 26 mmol/L (22-30); Chloride 106 mmol/L (98-107); Glucose 104 mg/dL (74-99); Lipase 28 U/L (23-300); Magnesium 1.8 mg/dL (1.6-2.3); Non-African American GFR(CKD) 80 (>60 ml/min/1.73 sqM); Potassium 3.4 mmol/L (3.5-5.1); Sodium 140 mmol/L (137-145); Total Bilirubin 0.5 mg/dL (0.2-1.3); Total Protein 5.9 g/dL (6.3-8.2)
[2022-07-28 09:10] LABS: Partial Thromboplastin Time 27.2 sec (22.0-30.0)
[2022-07-28] MEDS ORDERED: NITROGLYCERIN SL TABS 0.4 MG TAB SUBLINGUAL PRN (09:52)
--- NOTE | 2022-07-28 10:51 | P.HPIM ---
History of Present Illness H&P Date: 07/28/22 Chief Complaint: I was having some chest pain This is a 81-year-old female past medical history approximately atrial fibrillation, hyperlipidemia, presents to the hospital with chest pain. Patient states she woke up this morning with lightheadedness. She notices pain located in middle of the chest. Did not radiate anywhere. Denies any shortness of breath, palpitations. Lightheadedness was present even when she was sitting down, not related to positioning. The chest pain continued on as result she called her daughter and came to the ER. In the ER she was given sublingual nitroglycerin which took the pain away. Patient feels better since then and has not had any recurrence of pain. Patient will use here a week ago with new onset atrial fibrillation. She was seen in outpatient cardiology office couple days ago where her amiodarone dose was decreased in atenolol dose was made twice a day. Sees Dr. perez for cardiology. EKG 07/28/22: Rate 58. SC 157. QTC 452. Sinus bradycardia. Normal axis. No specific ST or T-wave changes. Echo-07/17/22: LVEF 5055%. Moderately increased left atrial volume. Trace to mild MR. Mild TR. Stress echo-2016: Negative Assessment: Atypical anginal pain Accelerated hypertension Paroxysmal atrial fibrillation, currently sinus bradycardia. CHADSVASC greater than equal to 4 Hyperlipidemia. Intolerant to statins Hypokalemia Sinus bradycardia Plan: Continue aspirin 81 mg daily Trend troponins EKG reviewed-no acute ischemic changes Patient intolerant to statins Echocardiogram from last week reviewed Continue atenolol 50 mg 3 times a day Continue amiodarone 200 mg daily Continue apixiban 5 mg twice a day By mouth potassium chloride 40 Meq x1 Nitroglycerin when necessary. If patient has recurrence of pain we'll start the patient on nitroglycerin IV drip Cardiac consultation We'll schedule for stress test tomorrow. Review of systems: 10 out of 14. Systems performed negative except HPI Physical examination: General: [nontoxic], [no distress], [appears at stated age] Derm: [warm], [dry] Head: [atraumatic], [normocephalic], [symmetric] Eyes: [EOMI], [no lid lag], [anicteric sclera] Neck: No JVD. Trachea midline Mouth: [no lip lesion], [mucus membranes moist] Cardiovascular: [S1S2 reg], [grade 2/6 systolic murmur at right sternal border], regular rate and rhythm Lungs: [CTA bilateral], [no rhonchi, mild rales left base] , [no accessory muscle use] Abdominal: [soft], [ nontender to palpation], [no guarding], [no appreciable organomegaly] Ext: [no gross muscle atrophy], [trace bilateral pitting edema], [no contractures] Past Medical History Past Medical History: Atrial Fibrillation, Cancer, Hyperlipidemia, Hypertension, Osteoarthritis (OA) Additional Past Medical History / Comment(s): Recent abdominal pain/weakness, R breast cancer/lumpectomy, basal skin cancer with removal, pt does not tolerate statins, arthritis in hands, knees, hips and back, chronic back pain, migraines until menopause, diarrhea since cholecystectomy. History of Any Multi-Drug Resistant Organisms: None Reported Past Surgical History: Cholecystectomy, Hysterectomy Additional Past Surgical History / Comment(s): R breast lumpectomy, skin cancer removed from face, L carpal tunnel release, bilateral cataracts removed/lens implants and then surgery bilateral eyes to remove a film, colonoscopy. Past Anesthesia/Blood Transfusion Reactions: Postoperative Nausea & Vomiting (PONV) Past Psychological History: No Psychological Hx Reported Smoking Status: Never smoker Past Alcohol Use History: None Reported Past Drug Use History: None Reported - Past Family History Father Family Medical History: Cancer Additional Family Medical History / Comment(s): FATHER AT 73 YRS FROM COLON CANCER WITH METS. Mother Family Medical History: CVA/TIA Additional Family Medical History / Comment(s): LUPUS. Mother at age 94yrs Medications and Allergies Home Medications Medication Instructions Recorded Confirmed Type Aspirin 81 mg PO DAILY 03/19/16 07/16/22 History Fluticasone Nasal [place] [Flonase 1 spray EA NOSTRIL BID 07/16/22 07/16/22 History Nasal [place]] Apixaban [Eliquis] 5 mg PO BID #60 tab 07/17/22 Rx Acetaminophen Tab [Tylenol] 650 mg PO Q6HR PRN tab 07/18/22 Rx Amiodarone [Cordarone] 200 mg PO DAILY #60 tab 07/18/22 Rx atenoloL [Tenormin] 50 mg PO BID 07/28/22 07/28/22 History Allergies Allergy/AdvReac Type Severity Reaction Status Date / Time azithromycin [From Zithromax] Allergy Nausea & Verified 07/28/22 10:24 Vomiting & Diarrhea Penicillins Allergy Rash/Hives Verified 07/28/22 10:24 ezetimibe [From Zetia] AdvReac Unknown Nausea & Verified 07/28/22 10:24 Vomiting & Diarrhea Tbltvlz-HZO-VfR Reductase AdvReac Unknown Nausea & Verified 07/28/22 10:24 Inhibitor Vomiting & [Msaivae-Buk-Mmo Reductase Diarrhea Inhibitor] Physical Exam Vitals: Vital Signs Temp Pulse Resp BP Pulse Ox 07/28/22 09:07 98 F 56 L 16 148/71 96 07/28/22 08:25 58 L 16 155/84 98 07/28/22 08:12 16 07/28/22 07:57 98 F 58 L 16 182/79 96 07/28/22 07:39 97.8 F 105 H 18 158/77 98 Intake and Output 07/27/22 07/28/22 07/28/22 22:59 06:59 14:59 Other: Weight 81.647 kg Results CBC & Chem 7: 07/28/22 08:00 07/28/22 08:00 Labs: Abnormal Lab Results - Last 24 Hours (Table) 07/28/22 Range/Units 08:00 Potassium 3.4 L (3.5-5.1) mmol/L Glucose 104 H (74-99) mg/dL Total Protein 5.9 L (6.3-8.2) g/dL
[2022-07-28] MEDS ORDERED: POTASSIUM CHLORIDE ER 20 MEQ TAB.ER PO STA (10:56)
[2022-07-28] MEDS: atenoloL 50 MG TAB PO SCH ×2 (11:10→20:15)
[2022-07-28] MEDS: AMIODARONE 200 MG TAB PO SCH (11:10)
[2022-07-28] MEDS: APIXABAN 5 MG TAB PO SCH ×2 (11:10→20:15)
[2022-07-28] MEDS: ACETAMINOPHEN TAB 325 MG TAB PO PRN (11:18)
[2022-07-28] MEDS: FLUTICASONE 50MCG/SPRAY NASAL 16GM EA NOSTRIL SCH ×2 (12:49→20:15)
[2022-07-28] MEDS: NITROGLYCERIN OINT 1 INCH/GM PACKET TOPICAL SCH ×3 (14:47→23:15)
--- NOTE | 2022-07-28 14:54 | P.CRDCN ---
History of Present Illness Consult date: 07/28/22 Requesting physician: Lizy Chaves Reason for Consult (text): chest pain Chief complaint: lightheadedness, chest pressure History of present illness: This pleasant 81-year-old female patient who follows in the office with Dr. Chong. She has a history of paroxysmal atrial tachycardia, hyperlipidemia statin intolerance, sick sinus syndrome, chronic artery disease. She was recently admitted with complaints of significant lightheadedness, diaphoresis and chest pain. At that time she was noted to be in atrial fibrillation with rapid ventricular response. She's been anticoagulated. Echocardiogram at that time revealed an ejection fraction of 50-55% with trace to mild MR and mild TR. She presented this admission with complaints similar to those with prior admission however less intense. She had lightheadedness and some slight chest pressure. She was in normal sinus rhythm and has been maintaining sinus mechanism this admission thus far. Chest x-ray on admission showed right lower lobe V's, somewhat flat appearance that could represent atelectasis that were present on prior exam. Labs showed troponins negative 2 and NT proBNP of 773. Hemoglobin is normal at 12.2. Upon examination she is resting comfortably in bed. Currently denies any complaints of lightheadedness or chest discomfort. She denies any palpitations. Her breathing is stable. She's had no orthopnea or PND. Past Medical History Past Medical History: Atrial Fibrillation, Cancer, Hyperlipidemia, Hypertension, Osteoarthritis (OA) Additional Past Medical History / Comment(s): Recent abdominal pain/weakness, R breast cancer/lumpectomy, basal skin cancer with removal, pt does not tolerate statins, arthritis in hands, knees, hips and back, chronic back pain, migraines until menopause, diarrhea since cholecystectomy. History of Any Multi-Drug Resistant Organisms: None Reported Past Surgical History: Cholecystectomy, Hysterectomy Additional Past Surgical History / Comment(s): R breast lumpectomy, skin cancer removed from face, L carpal tunnel release, bilateral cataracts removed/lens implants and then surgery bilateral eyes to remove a film, colonoscopy. Past Anesthesia/Blood Transfusion Reactions: Postoperative Nausea & Vomiting (PONV) Past Psychological History: No Psychological Hx Reported Additional Psychological History / Comment(s): Pt resides at [facility]. Pt uses a cane. She no longer drives, she gets to appts by her daughter, Alma Delia, or uses [facility]. Smoking Status: Never smoker Past Alcohol Use History: None Reported Past Drug Use History: None Reported - Past Family History Father Family Medical History: Cancer Additional Family Medical History / Comment(s): FATHER AT 73 YRS FROM COLON CANCER WITH METS. Mother Family Medical History: CVA/TIA Additional Family Medical History / Comment(s): LUPUS. Mother at age 94yrs Medications and Allergies Home Medications Medication Instructions Recorded Confirmed Type Aspirin 81 mg PO HS 03/19/16 07/28/22 History Fluticasone Nasal [place] [Flonase 1 spr EA NOSTRIL BID 07/16/22 07/28/22 History Nasal [place]] Apixaban [Eliquis] 5 mg PO BID #60 tab 07/17/22 07/28/22 Rx Acetaminophen Tab [Tylenol] 650 mg PO Q6HR PRN tab 07/18/22 07/28/22 Rx Amiodarone [Cordarone] 200 mg PO DAILY #60 tab 07/18/22 07/28/22 Rx atenoloL [Tenormin] 50 mg PO BID 07/28/22 07/28/22 History Allergies Allergy/AdvReac Type Severity Reaction Status Date / Time azithromycin [From Zithromax] Allergy Nausea & Verified 07/28/22 10:24 Vomiting & Diarrhea Penicillins Allergy Rash/Hives Verified 07/28/22 10:24 ezetimibe [From Zetia] AdvReac Unknown Nausea & Verified 07/28/22 10:24 Vomiting & Diarrhea Puoikqc-AZR-DgO Reductase AdvReac Unknown Nausea & Verified 07/28/22 10:24 Inhibitor Vomiting & [Yavuzjq-Run-Twh Reductase Diarrhea Inhibitor] Physical Exam Vitals: Vital Signs Temp Pulse Pulse Resp BP BP Pulse Ox 07/28/22 13:04 97.9 F 64 18 132/73 98 07/28/22 10:50 97.6 F 56 L 18 152/80 98 07/28/22 10:34 98.6 F 56 L 18 147/68 98 07/28/22 09:07 98 F 56 L 16 148/71 96 07/28/22 08:25 58 L 16 155/84 98 07/28/22 08:12 16 07/28/22 07:57 98 F 58 L 16 182/79 96 07/28/22 07:39 97.8 F 105 H 18 158/77 98 Intake and Output 07/27/22 07/28/22 07/28/22 22:59 06:59 14:59 Intake Total 118 Balance 118 Intake: Oral 118 Other: # Voids 2 Weight 81.647 kg PHYSICAL EXAMINATION: This is a 81-year-old female in no apparent distress at the time of my examination. VITAL SIGNS: Blood pressure 152/80, heart rate 56, respirations 18, temp 97.6F. Patient is 98 % on room air. HEENT: Head is atraumatic, normocephalic. Pupils are equal, round. Sclerae anict william. Conjunctivae are clear. Mucous membranes of the mouth are moist. Neck is supple. There is no elevated jugular venous pressure. No carotid bruit is heard. CHEST EXAMINATION: Clear to auscultation bilaterally. No wheezes rales or rhonchi. Respirations even and nonlabored. HEART EXAMINATION: Heart regular, positive S1 and S2. No S3. No S4. No clicks, rubs or murmurs. ABDOMEN: Soft, nontender. Bowel sounds are heard. No organomegaly noted. EXTREMITIES: 2+ peripheral pulses with no evidence of peripheral edema and no calf tenderness noted. NEUROLOGIC EXAMINATION: Patient is awake, alert and oriented x3. Results 07/28/22 08:00 07/28/22 08:00 Cardiac Enzymes 07/28/22 07/28/22 07/28/22 Range/Units 08:00 08:00 11:25 AST 23 (14-36) U/L Troponin I <0.012 <0.012 (0.000-0.034) ng/mL Coagulation 07/28/22 Range/Units 08:00 PT 11.0 (9.0-12.0) sec APTT 27.2 (22.0-30.0) sec CBC 07/28/22 Range/Units 08:00 WBC 6.1 (3.8-10.6) k/uL RBC 4.10 (3.80-5.40) m/uL Hgb 12.2 (11.4-16.0) gm/dL Hct 37.9 (34.0-46.0) % Plt Count 256 (150-450) k/uL Comprehensive Metabolic Panel 07/28/22 Range/Units 08:00 Sodium 140 (137-145) mmol/L Potassium 3.4 L (3.5-5.1) mmol/L Chloride 106 (98-107) mmol/L Carbon Dioxide 26 (22-30) mmol/L BUN 10 (7-17) mg/dL Creatinine 0.72 (0.52-1.04) mg/dL Glucose 104 H (74-99) mg/dL Calcium 9.1 (8.4-10.2) mg/dL AST 23 (14-36) U/L ALT 24 (4-34) U/L Alkaline Phosphatase 50 (38-126) U/L Total Protein 5.9 L (6.3-8.2) g/dL Albumin 3.9 (3.5-5.0) g/dL Current Medications Generic Name Dose Route Start Last Admin Trade Name Freq PRN Reason Stop Dose Admin Acetaminophen 325 mg 07/28/22 10:52 07/28/22 11:18 Acetaminophen Tab 325 Mg Tab PO 325 mg Q6HR PRN Administration Mild Pain or Fever > 100.5 Aminophylline 100 mg 07/29/22 09:00 Aminophylline 500 Mg/20 Ml Vial IV 07/29/22 23:00 ONCE PRN Patient Response Amiodarone HCl 200 mg 07/28/22 11:00 07/28/22 11:10 Amiodarone 200 Mg Tab PO Not Given DAILY [facility] Apixaban 5 mg 07/28/22 11:00 07/28/22 11:10 Apixaban 5 Mg Tab PO Not Given BID [facility] Protocol Aspirin 81 mg 07/29/22 09:00 Aspirin 81 Mg PO DAILY [facility] Atenolol 50 mg 07/28/22 11:00 07/28/22 11:10 Atenolol 50 Mg Tab PO Not Given BID [facility] Caffeine Citrate 60 mg 07/29/22 09:00 Caffeine Citrate 60 Mg/3 Ml Vial IV 07/29/22 23:00 ONCE PRN Patient Response Fluticasone Propionate 1 spray 07/28/22 11:00 07/28/22 12:49 Fluticasone 50mcg/[place] Nasal 16gm EA NOSTRIL 1 spray BID [facility] Administration Loperamide HCl 2 mg 07/28/22 14:43 Loperamide 2 Mg Cap PO QID PRN Diarrhea Nitroglycerin 0.4 mg 07/28/22 09:52 Nitroglycerin Sl Tabs 0.4 Mg Tab SUBLINGUAL Q5M PRN Chest Pain Nitroglycerin 1 inch 07/28/22 12:00 Nitroglycerin Oint 1 Inch/Gm Packet TOPICAL Q6HR MARCUS Regadenoson 0.4 mg 07/29/22 09:00 Regadenoson 0.4 Mg/5 Ml Syringe IV 07/29/22 23:00 ONCE PRN Per Protocol Sodium Chloride 10 ml 07/28/22 21:00 Sodium Chloride 0.9% Flush 10 Ml Syringe IV BID MARCUS Intake and Output 07/27/22 07/28/22 07/28/22 22:59 06:59 14:59 Intake Total 118 Balance 118 Intake: Oral 118 Other: # Voids 2 Weight 81.647 kg Patient Weight 07/29/22 06:59 Weight 81.647 kg 07/28/22 08:00 07/28/22 08:00 Assessment and Plan Assessment: #1 symptoms of chest pressure, no evidence of acute coronary event, troponins negative 2, EKG shows no ischemic changes #2 paroxysmal atrial fibrillation #3 hypertension #4 hyperlipidemia Plan: From taffy candy maker perspective Continue anticoagulation and amiodarone as well as beta kirsten. A Lexiscan MPI has already been ordered by primary this be done tomorrow we will await results. Further recommendations. Provided accordingly. MOLD CAPPER HELPER note has been reviewed, I agree with a documented findings and plan of care. Patient was seen and examined.
[2022-07-28] MEDS: LOPERAMIDE 2 MG CAP PO PRN (16:07)
[2022-07-29 00:24] VITALS: RESP 16
[2022-07-29] MEDS: NITROGLYCERIN OINT 1 INCH/GM PACKET TOPICAL SCH (05:10)
[2022-07-29] MEDS: AMIODARONE 200 MG TAB PO SCH (07:54)
[2022-07-29] MEDS: FLUTICASONE 50MCG/SPRAY NASAL 16GM EA NOSTRIL SCH (07:54)
[2022-07-29] MEDS: atenoloL 50 MG TAB PO SCH (07:55)
[2022-07-29 08:55] LABS: Basophils # (A) 0.02 X 10*3/uL (0.00-0.10); Basophils % (A) 0.4 %; Eosinophils # (A) 0.16 X 10*3/uL (0.04-0.35); Eosinophils % (A) 2.8 %; HCT 34.3 % (37.2-46.3); HGB 11.5 g/dL (12.0-15.0); Immature Grans, Automated 0.4 %; Lymphocytes # (A) 1.74 X 10*3/uL (0.90-5.00); MCH 30.3 pg (27.0-32.0); MCHC 33.5 g/dL (32.0-37.0); MCV 90.5 fL (80.0-97.0); Mean Platelet Volume 11.2 fL (9.5-12.2); Monocytes % (A) 7.1 %; NRBC Per 100 WBC 0 /100 WBCS (0.0-0.0); Neutrophils # (A) 3.28 X 10*3/uL (1.80-7.70); Neutrophils % (A) 58.3 %; Platelet Count 234 X 10*3/uL (140-440); RBC 3.79 X 10*6/uL (4.10-5.20); RDW 13.1 % (11.5-14.5); WBC 5.62 X 10*3/uL (4.50-10.00)
[2022-07-29 08:58] LABS: African American GFR (CKD) 80.1 (60.0-200.0); BUN/Creat Ratio 10.75 Ratio (12.00-20.00); Blood Urea Nitrogen 8.6 mg/dL (9.0-27.0); Calcium 8.8 mg/dL (8.7-10.3); Carbon Dioxide 26.5 mmol/L (20.0-27.5); Chloride 108 mmol/L (96-109); Chol/HDL Ratio 3.76 Ratio; Glucose 100 mg/dL (70-110); LDL Cholesterol,Calculated 99.6 mg/dL (0.0-131.0); Non-African American GFR(CKD) 69.1 (60.0-200.0); Potassium 3.9 mmol/L (3.5-5.5); Sodium 144 mmol/L (135-145)
[2022-07-29] MEDS ORDERED: CAFFEINE CITRATE 60 MG/3 ML VIAL IV PRN (09:00)
[2022-07-29] MEDS ORDERED: AMINOPHYLLINE 500 MG/20 ML VIAL IV PRN (09:00)
[2022-07-29] MEDS ORDERED: ASPIRIN 81 MG PO SCH (09:00)
[2022-07-29] MEDS ORDERED: REGADENOSON 0.4 MG/5 ML SYRINGE IV PRN (09:00)
[2022-07-29] MEDS ORDERED: ASPIRIN 325 MG TAB PO SCH (09:00)
--- NOTE | 2022-07-29 10:09 | P.PN ---
Subjective Progress Note Date: 07/29/22 HISTORY OF PRESENT ILLNESS: This pleasant 81-year-old female patient who follows in the office with Dr. Chong. She has a history of paroxysmal atrial tachycardia, hyperlipidemia statin intolerance, sick sinus syndrome, chronic artery disease. She was recently admitted with complaints of significant lightheadedness, diaphoresis and chest pain. At that time she was noted to be in atrial fibrillation with rapid ventricular response. She's been anticoagulated. Echocardiogram at that time revealed an ejection fraction of 50-55% with trace to mild MR and mild TR. She presented this admission with complaints similar to those with prior admission however less intense. She had lightheadedness and some slight chest pressure. She was in normal sinus rhythm and has been maintaining sinus mechanism this admission thus far. Chest x-ray on admission showed right lower lobe V's, somewhat flat appearance that could represent atelectasis that were present on prior exam. Labs showed troponins negative 2 and NT proBNP of 773. Hemoglobin is normal at 12.2. Upon examination she is resting comfortably in bed. Currently denies any complaints of lightheadedness or chest discomfort. She denies any palpitations. Her breathing is stable. She's had no orthopnea or PND. 07/29/2022 Patient examined this morning at the bedside. Patient denies chest pain or pressure. She denies shortness of breath. She denies any dizziness or lightheadedness. Telemetry reveals sinus mechanism. Vital signs are stable. PHYSICAL EXAM: VITAL SIGNS: Reviewed. GENERAL: Well-developed in no acute distress. NECK: Supple. No JVD or thyromegaly LUNGS: Respirations even and unlabored. Lungs essentially clear to auscultation bilaterally. HEART: Regular rate and rhythm. S1 and S2 heard. EXTREMITIES: Normal range of motion. No clubbing or cyanosis. Peripheral pulses intact. No lower extremity edema ASSESSMENT: Chest pressure, acute coronary syndrome ruled out Paroxysmal atrial fibrillation Hypertension Hyperlipidemia PLAN: Continue current cardiac medications Patient to undergo Lexiscan stress test today. If negative, she may be discharged home from a cardiac standpoint Nurse practitioner note has been reviewed by physician. Signing provider agrees with the documented findings, assessment, and plan of care. Objective - Vital Signs Vital signs: Vital Signs Temp 98.1 F 07/29/22 07:00 Pulse 51 L 07/29/22 07:00 Resp 16 07/29/22 07:00 BP 134/65 07/29/22 07:00 Pulse Ox 97 07/29/22 07:00 FiO2 Intake & Output 07/28/22 07/29/22 07/29/22 18:59 06:59 18:59 Intake Total 236 0 Balance 236 0 Weight 81.647 kg Intake: Oral 236 0 Other: Voiding Method Toilet # Voids 2 2 - Labs CBC & Chem 7: 07/29/22 05:59 07/29/22 05:59 Labs: Abnormal Lab Results - Last 24 Hours (Table) 07/29/22 07/29/22 Range/Units 05:59 05:59 RBC 3.79 L (4.10-5.20) X 10*6/uL Hgb 11.5 L (12.0-15.0) g/dL Hct 34.3 L (37.2-46.3) % Anion Gap 9.50 L (10.00-18.00) mmol/L BUN 8.6 L (9.0-27.0) mg/dL BUN/Creatinine Ratio 10.75 L (12.00-20.00) Ratio
[2022-07-29] MEDS: ACETAMINOPHEN TAB 325 MG TAB PO PRN (11:42)
[2022-07-29] MEDS: LOPERAMIDE 2 MG CAP PO PRN (11:55)
[2022-07-29] MEDS ORDERED: REGADENOSON 0.4 MG/5 ML SYRINGE IV ONE (12:26)
--- NOTE | 2022-07-29 12:28 | NM ---
EXAMINATION TYPE: NM stress lexiscan cardiolite DATE OF EXAM: 07/29/2022 COMPARISON: 01/29/2011 HISTORY: Chest pain TECHNIQUE: After the intravenous administration of 9.8 mCi Tc 99m Sestamibi - Cardiolite resting SPE CT images acquired 45 minutes post injection. The patient received 0.4mg Lexiscan, 24.9 mCi Tc 99m Sestamibi - Stress images obtained [address] injection FINDINGS: Review of stress and rest SPECT images demonstrates no distinct reversible perfusion abnormality. I c annot exclude a small fixed defect inferior wall. Gated analysis shows normal wall motion with an es timated left ventricular ejection fraction of 77 %. IMPRESSION: No scintigraphic evidence for reversible ischemia. Small fixed defect inferior wall could be artifact ual poorly clinically.
[2022-07-29] MEDS: APIXABAN 5 MG TAB PO SCH (13:01)
--- NOTE | 2022-07-29 13:44 | CA ---
Lexiscan Nuclear Stress Test Report Name: Nicole Mansfield Exam Date: 07/29/2022 10:09 Exam Location: [place] Stress Ht (in): 65 Wt (lb): 180 BSA: 1.89 Ordering Phys: Nahomy Ching MD Referring Phys: NAHOMY CHING,, Technologist: Arben Ochoa Age: 81 Gender: F : 1940 Procedure CPT: Indications: Reflex order-Stress test ICD-10 Codes: Patient History: Medications: SEE LIST/CHART Meds past 24 hrs: Pretest Chest Pain: STRESS TEST Lexiscan Protocol Exercise Duration (min:sec): 02:[address] Depressions (mm): Angina Score: Avilez Score: Resting HR (bpm): 58 Peak HR (bpm): 85 Resting BP (mmHg): 168 / 81 Peak BP (mmHg): 181 / 69 MPHR: 139 Target HR: 118 % MPHR: 61 METS: 1.0 Total Dose: Peak Dose: Atropine: Double Product: 72808 BP Response: Stress Termination: PROTOCOL COMPLETE Stress Symptoms: Stress Summary: ECG ANALYSIS Resting ECG: Stress ECG: CONCLUSIONS Dr. Quang Craig DO (Electronically Signed) Final Date: 29 July 2022 13:43
[2022-07-29 14:01] VITALS: BP 112/69; PULSE 67; TEMP 97.7
--- NOTE | 2022-07-29 14:06 | P.DS ---
Providers Date of admission: 07/28/22 09:52 Expected date of discharge: 07/29/22 Attending physician: Lizy Chaves MD Consults: 07/28/22 09:52 Consult Physician Urgent Consulting Provider: Paul Newsome Consult Reason/Comments: cp Do you want consulting provider notified?: Yes Primary care physician: Marisol Blair [place] Hospital Course: Discharge Diagnosis: Chest pain, acute coronary event ruled out Paroxysmal Atrial fibrillation Sinus bradycardia Hypertension Hyperlipidemia Hypokalemia, resolved Hospital Course: Patient is a very pleasant 81-year-old female with a past medical history of atrial fibrillation, hypertension, and hyperlipidemia. She presented to the emergency department on 07/28/22 with a chief complaint of chest pain. Upon arrival to the emergency department, patient underwent full evaluation. An EKG was completed revealing sinus bradycardia at 58 bpm with T-wave inversion in leads 2 and 3 otherwise no noted T-wave or ST abnormalities showing no signs of acute ischemia. Chest x-ray was completed revealing right lower lobe opacities with slight appearance likely representing atelectasis is ever present on previous x-ray on 07/16/22 and unchanged. CBC, CMP, and coags showing no significant abnormalities with the exception of slightly low potassium of 3.4. D-dimer negative at 0.34. Troponin negative at less than 0.012. Patient admitted under services of consultation to cardiology. Troponins were trended overnight and all negative at less than 0.0123 draws. Liver profile unremarkable. Patient was evaluated by cardiology. Lexiscan stress test was completed showing no evidence for reversible ischemia revealing a small fixed defect of the inferior wall reviewed by cardiology and reported to be artifact. Cardiology recommending patient to follow up outpatient in their office in one week. Patient currently free from any chest pain, palpitations, shortness of breath, dizziness, lightheadedness, or any other complaints. She does report a mild headache from not eating this morning and medication administered during stress test. Patient is medically stable for discharge at this time and to follow up outpatient with PCP in 1-2 days and cardiology in 1 week. Physical examination: Patient seen and examined at bedside. Vital signs reviewed and stable. General: Nontoxic, no distress and appears stated age. Derm: Skin warm and dry, normal coloration for ethnicity. Head: Atraumatic, normocephalic and symmetric. Eyes: EOMs intact, no lid lag, and anicteric sclera Mouth: no lip lesions, mucus membranes moist Cardiovascular: regular rate and rhythm with normal S1S2, no murmur, positive posterior tibial pulses bilaterally, and cap refill < 2 seconds. Lungs: Respirations even, regular, and unlabored on room air. Lungs CTA bilaterally, no rhonchi, no rales, no wheezing, and no accessory muscle usage. Abdominal: soft, nontender to palpation, no guarding, no appreciable organomegaly Ext: ROM intact. No gross muscle atrophy, no edema, no contractures Neuro: Speech clear, face symmetrical and CN II-XII grossly intact with no noted focal neuro deficits Psych: Alert and oriented to person, place, time, and situation. Appropriate and pleasant affect. A total of 37 minutes of time were spent preparing this complex discharge summary. Pt was discharged on 07/29/22 at 2:13 PM Patient Condition at Discharge: Stable Plan - Discharge Summary Discharge Rx Participant: Yes New Discharge Prescriptions: Continue Aspirin 81 mg PO HS Apixaban [Eliquis] 5 mg PO BID #60 tab Acetaminophen Tab [Tylenol] 650 mg PO Q6HR PRN tab PRN Reason: Mild Pain Or Fever > 100.5 Fluticasone Nasal [place] [Flonase Nasal [place]] 1 spr EA NOSTRIL BID Amiodarone [Cordarone] 200 mg PO DAILY #60 tab atenoloL [Tenormin] 50 mg PO BID Discharge Medication List Aspirin 81 mg PO HS 03/19/16 [History] Fluticasone Nasal [place] [Flonase Nasal [place]] 1 spr EA NOSTRIL BID 07/16/22 [History] Apixaban [Eliquis] 5 mg PO BID #60 tab 07/17/22 [Rx] Acetaminophen Tab [Tylenol] 650 mg PO Q6HR PRN tab 07/18/22 [Rx] Amiodarone [Cordarone] 200 mg PO DAILY #60 tab 07/18/22 [Rx] atenoloL [Tenormin] 50 mg PO BID 07/28/22 [History] Follow up Appointment(s)/Referral(s): Marisol Blair MD [Primary Care Provider] - 1-2 days Quang Craig DO [STAFF PHYSICIAN] - 1 Week Patient Instructions/Handouts: Chest Pain (DC) Activity/Diet/Wound Care/Special Instructions: Activity: As tolerated. Take breaks as needed. Diet: Heart healthy and carb consistent diet. Avoid salts, or foods with hidden salts such as canned or boxed foods and frozen dinners. Extra salt makes your heart work harder and traps the fluid in your body for longer. Special Instructions: Take all of your medications as directed and remember to keep all of your doctor's appointments and follow-up as needed. Thank you for allowing us to participate in your care, it was truly a pleasure having you for our patient!!! Discharge Disposition: HOME SELF-CARE
== END 2022-07-29 14:56 | disposition home or self-care (01) ==
LOC: EC 07:33 → 6NMEDSUR 09:52
PROVIDERS: ADMIT Internal Medicine; ATTEND Internal Medicine
DX: R07.89 Other chest pain (principal); I48.0 Paroxysmal atrial fibrillation; R00.1 Bradycardia, unspecified; I10 Essential (primary) hypertension; E78.5 Hyperlipidemia, unspecified; E87.6 Hypokalemia; M19.042 Primary osteoarthritis, left hand; M19.041 Primary osteoarthritis, right hand; M17.0 Bilateral primary osteoarthritis of knee; M16.0 Bilateral primary osteoarthritis of hip; M19.09 Primary osteoarthritis, other specified site; Z79.01 Long term (current) use of anticoagulants; Z79.82 Long term (current) use of aspirin; Z79.899 Other long term (current) drug therapy; Z85.828 Personal history of other malignant neoplasm of skin; Z85.3 Personal history of malignant neoplasm of breast; Z90.49 Acquired absence of other specified parts of digestive tract; Z90.710 Acquired absence of both cervix and uterus; Z96.1 Presence of intraocular lens; Z88.0 Allergy status to penicillin; Z88.1 Allergy status to other antibiotic agents
CPT/HCPCS: 99285; 36415; 94760; 93005; 93017; 85379; 83880; 80061; 80053; 80048; 82150; 83690; 83735; 84484; 85025 ×2; 85610; 85730; 71046; 78452; G0378 ×3; A9500; J2785

== ENCOUNTER 2022-10-08 09:07 | Emergency (ER) | payer MEDICARE, BC ==
[2022-10-08] MEDS ORDERED: ACETAMINOPHEN TAB 500 MG TAB PO STA (09:42)
--- NOTE | 2022-10-08 09:52 | ED ---
General Adult HPI <Nina Presley - Last Filed: 10/08/22 10:56> - General Source: patient, RN notes reviewed, old records reviewed Mode of arrival: ambulatory Limitations: no limitations <Fortunato Durbin - Last Filed: 10/08/22 12:48> - General Chief complaint: Fall Stated complaint: fall - head injury Time Seen by Provider: 10/08/22 09:24 - History of Present Illness Initial comments: Patient is an 82-year-old female with past medical history remarkable for atrial fibrillation on Coumadin, hypertension who presents emergency Department after mechanical fall. She does ambulate with a cane at baseline and tripped over the edge of a rug. She fell forward, hitting the right side of her head now has a contusion over the right parietal skull as well as a laceration and bruising along the right eyebrow. Also endorses some mild discomfort is musculoskeletal over the superior aspect of the breast bone. It is palpable pain. Denies any difficulty in breathing. Denies any back pain. Denies abdominal pain. Denies nausea or vomiting. Did not lose consciousness. Uncertain what her INR is as she was due to follow up today for her lab draw. Denies any fevers, chills, cough. His no other acute complaints at this time. Denies any extremity pain. Presents over concern for fall on blood thinners.All occurred at approximately 8:30 this morning. (Fortunato Durbin) - Related Data Home Medications Medication Instructions Recorded Confirmed Aspirin 81 mg PO HS 03/19/16 07/28/22 Fluticasone Nasal [place] [Flonase 1 spr EA NOSTRIL BID 07/16/22 07/28/22 Nasal [place]] atenoloL [Tenormin] 50 mg PO BID 07/28/22 07/28/22 Previous Rx's Medication Instructions Recorded Apixaban [Eliquis] 5 mg PO BID #60 tab 07/17/22 Acetaminophen Tab [Tylenol] 650 mg PO Q6HR PRN tab 07/18/22 Amiodarone [Cordarone] 200 mg PO DAILY #60 tab 07/18/22 Clindamycin [Cleocin] 450 mg PO Q8H 7 Days #63 cap 10/08/22 Sodium Chloride [Saline Mist] 1 spray EA NOSTRIL TID #45 ml 10/08/22 Allergies Allergy/AdvReac Type Severity Reaction Status Date / Time azithromycin [From Zithromax] Allergy Nausea & Verified 10/08/22 09:22 Vomiting & Diarrhea Penicillins Allergy Rash/Hives Verified 10/08/22 09:22 ezetimibe [From Zetia] AdvReac Unknown Nausea & Verified 10/08/22 09:22 Vomiting & Diarrhea Dfqojuj-EKE-IbH Reductase AdvReac Unknown Nausea & Verified 10/08/22 09:22 Inhibitor Vomiting & [Isslksv-Krb-Dgf Reductase Diarrhea Inhibitor] Review of Systems ROS Other: All systems not noted in ROS Statement are negative. <Nina Presley - Last Filed: 10/08/22 10:56> ROS Other: All systems not noted in ROS Statement are negative. <Fortunato Durbin - Last Filed: 10/08/22 12:48> ROS Statement: Those systems with pertinent positive or pertinent negative responses have been documented in the HPI. Review of Systems: CONST: Denies fever EYES: Denies blurry vision ENT: Denies nasal congestion C/V: Denies Chest pain RESP: Denies shortness of breath GI: Denies abdominal pain : Denies dysuria SKIN: Endorses laceration. MSK: Endorses facial pain. NEURO: Denies headache (Fortunato Durbin) Past Medical History Past Medical History: Atrial Fibrillation, Cancer, Hyperlipidemia, Hypertension, Osteoarthritis (OA) Additional Past Medical History / Comment(s): Recent abdominal pain/weakness, R breast cancer/lumpectomy, basal skin cancer with removal, pt does not tolerate statins, arthritis in hands, knees, hips and back, chronic back pain, migraines until menopause, diarrhea since cholecystectomy. History of Any Multi-Drug Resistant Organisms: None Reported Past Surgical History: Cholecystectomy, Hysterectomy Additional Past Surgical History / Comment(s): R breast lumpectomy, skin cancer removed from face, L carpal tunnel release, bilateral cataracts removed/lens implants and then surgery bilateral eyes to remove a film, colonoscopy. Past Anesthesia/Blood Transfusion Reactions: Postoperative Nausea & Vomiting (PONV) Past Psychological History: No Psychological Hx Reported Smoking Status: Never smoker Past Alcohol Use History: None Reported Past Drug Use History: None Reported - Past Family History Father Family Medical History: Cancer Additional Family Medical History / Comment(s): FATHER AT 73 YRS FROM COLON CANCER WITH METS. Mother Family Medical History: CVA/TIA Additional Family Medical History / Comment(s): LUPUS. Mother at age 94yrs <Fortunato Durbin - Last Filed: 10/08/22 12:48> General Exam Limitations: no limitations <Fortunato Durbin - Last Filed: 10/08/22 12:48> - General Exam Comments Initial Comments: General: Appears in no acute distress. HEAD: Has a contusion located over the right frontal/parietal skull. Patient is a small approximately 2-3 cm laceration that is linear located over the right superior eyebrow laterally with surrounding bruising. No other facial tenderness to palpation. Negative velasquez sign. Negative raccoon eyes. EYES: PERRLA, EOMI, conjunctiva normal, no discharge. Pupils are 3 mm and equal bilaterally. No evidence of entrapment of ocular eye muscles as EOMI. ENT: Hearing grossly intact, normal oropharynx. RESPIRATORY: Clear breath sounds bilaterally. No wheezes, rales, or rhonchi. C/V: Regular rate and rhythm. S1 and S2 auscultated, no edema, peripheral pulses 2+ and intact throughout ABD: Abd is soft, nontender, nondistended EXT: Normal range of motion, no obvious deformity. No midline cervical, thoracic, lumbar spine tenderness to palpation. Pelvis is stable. No extremity pain. Mild tenderness to palpation of the superior aspect of the sternum. SKIN: 2-3 cm laceration located over the right eyebrow. NEURO: Alert and oriented 4. GCS 15. Ambulates with a cane at baseline. (Fortunato Durbin) Course Vital Signs 10/08/22 09:18 Temperature 98.1 F Pulse Rate 72 Respiratory 18 Rate Blood Pressure 148/86 O2 Sat by Pulse 96 Oximetry Procedures - Laceration Laceration #1 Consent Obtained: verbal consent Indication: laceration Site: face (right eye brow) Size (cm): 2 Description: linear Depth: simple, single layer Anesthetic Used: lidocaine 1% Anesthesia Technique: local infiltration Pre-repair: wound explored, irrigated extensively Type of Sutures: nylon Size of Sutures: 5-0 Number of Sutures: 4 Technique: simple, interrupted Patient Tolerated Procedure: well, no complications <Nina Presley - Last Filed: 10/08/22 10:56> Medical Decision Making - Lab Data Result diagrams: 10/08/22 10:04 10/08/22 10:04 <SakinaReinaldoa - Last Filed: 10/08/22 10:56> - Lab Data Result diagrams: 10/08/22 10:04 10/08/22 10:04 <Fortunato Durbin - Last Filed: 10/08/22 12:48> - Medical Decision Making Based on patient's presentation and physical exam, I'm concerned for a patient that fell from standing height on blood thinners. GCS of 15. Has been over an hour since her fall. We'll obtain CT imaging of the brain, face, C-spine as well as x-rays of the chest and pelvis. She does have a laceration that will require closure. She is up-to-date on tetanus. She'll be given Tylenol for pain. Vital signs within acceptable limits. Patient was in agreement this plan . Patient's laboratory studies returned remarkable for a mildly decreased INR of 1.4. Remainder the labs are unremarkable. Chest x-ray and pelvic x-rays interpreted by myself revealed no acute traumatic injury. No acute cardiopulmonary process. Head CT and CT of the cervical spine reveals no acute intracranial process. There is a right frontal scalp hematoma as well as a right inferior orbital wall nondisplaced fracture with associated layering blood within the right maxillary sinus. There is also subcutaneous edema in the right cheek. No evidence of cervical spine injury. Laceration was closed by an assisting mid-level provider.Patient's stitches require removal in 5-7 days. I did update the patient as well as family members. On reevaluation, once again there is no evidence of entrapment of extraocular eye muscles. They expressed understanding of the injury. I did speak with Dr. Palmer over the phone regarding the inferior orbital wall fracture. He was in agreement follow-up in the office this week. I did give him the patient's name and contact information and patient will also receive contact information to call the office this week. I will empirically start the patient on antibiotics, and due to her ALLERGIES we decided to start her on clindamycin. I did offer her Flex but she prefers clindamycin which is less likely cross-reactivity due to her penicillin ALLERGY. Nasal precautions were discussed including not blowing her nose. She'll be given normal saline nasal spray. Patient was in agreement with this plan. I will provide the patient with a prescription for nasal spray, clindamycin. I instructed the patient to follow up with their PCP in the next 1-3 days. I provided contact information for follow up with ENT. I explained that the patient should return to the emergency department if they experience any worsening symptoms. Strict return precautions were discussed with the patient. The patient expressed understanding of these instructions. I answered all questions that the patient had. The patient was discharged home in good condition with their prescriptions and follow up information.. (Fortunato Durbin) - Lab Data Lab Results 10/08/22 10/08/22 10/08/22 Range/Units 10:04 10:04 10:04 WBC 7.1 (3.8-10.6) k/uL RBC 4.36 (3.80-5.40) m/uL Hgb 13.5 (11.4-16.0) gm/dL Hct 40.6 (34.0-46.0) % MCV 93.2 (80.0-100.0) fL MCH 31.0 (25.0-35.0) pg MCHC 33.3 (31.0-37.0) g/dL RDW 12.3 (11.5-15.5) % Plt Count 249 (150-450) k/uL MPV 9.1 Neutrophils % 74 % Lymphocytes % 19 % Monocytes % 4 % Eosinophils % 2 % Basophils % 1 % Neutrophils # 5.2 (1.3-7.7) k/uL Lymphocytes # 1.3 (1.0-4.8) k/uL Monocytes # 0.3 (0-1.0) k/uL Eosinophils # 0.1 (0-0.7) k/uL Basophils # 0.1 (0-0.2) k/uL PT 14.7 H (9.0-12.0) sec INR 1.4 H (<1.2) APTT 26.1 (22.0-30.0) sec Sodium 139 (137-145) mmol/L Potassium 4.7 (3.5-5.1) mmol/L Chloride 110 H (98-107) mmol/L Carbon Dioxide 23 (22-30) mmol/L Anion Gap 6 mmol/L BUN 22 H (7-17) mg/dL Creatinine 0.73 (0.52-1.04) mg/dL Est GFR (CKD-EPI)AfAm 89 (>60 ml/min/1.73 sqM) Est GFR (CKD-EPI)NonAf 77 (>60 ml/min/1.73 sqM) Glucose 102 H (74-99) mg/dL Calcium 9.1 (8.4-10.2) mg/dL Disposition <Nina Presley - Last Filed: 10/08/22 10:56> Is patient prescribed a controlled substance at d/c from ED?: No Time of Disposition: 11:35 <Fortunato Durbin - Last Filed: 10/08/22 12:48> Clinical Impression: Fall, Fracture of inferior orbital wall, Laceration Disposition: HOME SELF-CARE Condition: Good Instructions (If sedation given, give patient instructions): Facial Fracture (ED), Fall Prevention for Older Adults (ED) Prescriptions: Clindamycin [Cleocin] 450 mg PO Q8H 7 Days #63 cap Sodium Chloride [Saline Mist] 1 spray EA NOSTRIL TID #45 ml Referrals: Marisol Blair MD [Primary Care Provider] - 1-2 days Imtiaz Palmer DO [Doctor of Osteopathic Medicine] - 1-2 days
[2022-10-08 10:15] LABS: Basophils # (A) 0.1 k/uL (0-0.2); Basophils % (A) 1 %; Eosinophils # (A) 0.1 k/uL (0-0.7); Eosinophils % (A) 2 %; HCT 40.6 % (34.0-46.0); HGB 13.5 gm/dL (11.4-16.0); Lymphocytes # (A) 1.3 k/uL (1.0-4.8); Lymphocytes % (A) 19 %; MCHC 33.3 g/dL (31.0-37.0); MCV 93.2 fL (80.0-100.0); Mean Platelet Volume 9.1; Monocytes # (A) 0.3 k/uL (0-1.0); Monocytes % (A) 4 %; Neutrophils # (A) 5.2 k/uL (1.3-7.7); Neutrophils % (A) 74 %; Platelet Count 249 k/uL (150-450); RBC 4.36 m/uL (3.80-5.40); RDW 12.3 % (11.5-15.5); WBC 7.1 k/uL (3.8-10.6)
--- NOTE | 2022-10-08 10:22 | CT ---
EXAMINATION TYPE: CT brain cspine wo con, CT facial bones wo con CT DLP: 1049.5 mGycm, Automated exposure control for dose reduction was used. DATE OF EXAM: 10/08/2022 10:01 AM COMPARISON: None.. CLINICAL INDICATION:Female, 82 years old with history of fall, thinners; fall, no LOC, head lac on ri ght forehead TECHNIQUE: Brain: Multiple axial CT images of the brain were obtained without IV contrast. Cspine: Axial CT images from the skull base to the inferior aspect of T2 we obtained without intraven ous contrast. Coronal and sagittal reformatted images were also reviewed. Facial: Axial CT imaging with sagittal coronal reformats of the facial bones.. FINDINGS: Brain: Extra-axial spaces: No abnormal extra-axial fluid collections. Ventricular system: Within normal limits Cerebral parenchyma: No acute intraparenchymal hemorrhage or mass effect. The coley-white junction is well differentiated. Cerebellum: Unremarkable. Mass effect: No evidence of midline shift. Intracranial vasculature: Atherosclerotic calcifications of the intracranial vessels. Soft tissues: Right frontal scalp hematoma measuring 5.4 x 0.7 cm. Calvarium/osseous structures: No depressed skull fracture. Paranasal sinuses and mastoid air cells: Mucosal thickening/secretions layering within the right maxi llary sinus Visualized orbits: Bilateral aphakia Cervical spine: Fracture: None. Osseous structures: Multilevel degenerative disc disease changes with endplate spurring and disc oste ophyte complex's. Vertebral alignment: Within normal limits. Spinal canal/Neural Foramina: Disc osteophyte complexes at C5-C6 and C6-C7. With at least mild spinal canal stenosis. No evidence for significant neural foraminal stenosis. Neck soft tissues: Prevertebral soft tissues are within normal limits. Other: The airway is patent. The lung apices are clear. Atherosclerosis of the arterial vasculature. Facial bones: Subtle irregularity to the inferior orbital wall with lucency suggestive of nondisplace d fracture, best represented on series 302 image 7. High density layering fluid in the right maxillar y sinus likely representing blood products Hounsfield units of 44. Soft tissue edema over the right c heek is noted. The globes are intact. Intra and extraconal fat is intact. IMPRESSION: 1. No acute intracranial process. 2. Right frontal scalp hematoma. 3. Right inferior orbital wall nondisplaced fracture with associated layering blood within the right maxillary sinus. Associated right cheek subcutaneous edema. 4. No evidence of cervical spine fracture. 5. Mild multilevel degenerative disc disease.
[2022-10-08] MEDS ORDERED: LIDOCAINE 1% INJ 10MG/ML (30 ML VIAL-PF) SQ ONE (10:25)
[2022-10-08 10:34] LABS: Calcium 9.1 mg/dL (8.4-10.2); Potassium 4.7 mmol/L (3.5-5.1)
[2022-10-08 10:52] LABS: INR 1.4 (<1.2); Partial Thromboplastin Time 26.1 sec (22.0-30.0); Prothrombin Time 14.7 sec (9.0-12.0)
--- NOTE | 2022-10-08 11:28 | XR ---
EXAMINATION TYPE: XR chest 2V DATE OF EXAM: 10/08/2022 COMPARISON: 07/28/2022 TECHNIQUE: PA and lateral views submitted. HISTORY: Chest pain FINDINGS: Atherosclerotic changes of aorta with ectasia. Arthropathy of the shoulders with diffuse osteopenia. Surgical clips overlying the right breast. Degenerative changes spine. There is bilateral subsegmenta l consolidation and small pleural effusion. IMPRESSION: 1. Bilateral subsegmental infiltrate and small effusion or likely clinically.
--- NOTE | 2022-10-08 11:29 | XR ---
EXAMINATION TYPE: XR pelvis AP view DATE OF EXAM: 10/08/2022 COMPARISON: NONE HISTORY: Pain The osseous structures are intact and the joint spaces are preserved. No acute fracture is seen. Vi sualized bowel gas pattern is nonspecific. Degenerative change lower lumbar spine. Calcifications in the pelvis likely vascular. IMPRESSION: 1. No acute fracture.
[2022-10-08] MEDS ORDERED: CEPHALEXIN 500 MG CAP PO STA (11:39)
[2022-10-08] MEDS ORDERED: CLINDAMYCIN 150 MG CAP PO STA (11:56)
[2022-10-08 12:55] VITALS: BP 138/78; PULSE 78; RESP 16; TEMP 98.5
== END 2022-10-08 12:54 | disposition home or self-care (01) ==
LOC: EC 09:07
DX: S02.85XA Fracture of orbit, unspecified, initial encounter for closed fracture (principal); E78.5 Hyperlipidemia, unspecified; I10 Essential (primary) hypertension; Z79.01 Long term (current) use of anticoagulants; Z91.048 Other nonmedicinal substance allergy status; Z88.8 Allergy status to other drugs, medicaments and biological substances; Z88.1 Allergy status to other antibiotic agents; Z88.0 Allergy status to penicillin; Z85.828 Personal history of other malignant neoplasm of skin; W01.198A Fall on same level from slipping, tripping and stumbling with subsequent striking against other object, initial encounter; Y92.009 Unspecified place in unspecified non-institutional (private) residence as the place of occurrence of the external cause
CPT/HCPCS: 36415; 80048; 85025; 85610; 85730; 72170; 71046; 72125; 70486; 70450; 99285; 12011; J2001

== ENCOUNTER → 2023-07-14 | Outpatient (CLI) | payer MEDICARE, BC ==
--- NOTE | 2023-07-14 09:19 | MM ---
Reason for Exam: Hx of breast cancer, conservation therapy. Last mammogram was performed 2 year(s) and 2 month(s) ago. Patient History: Menarche at age 13. First Full-Term at age 22. Hysterectomy at age 31. Postmenopausal. Patient has history of breast feeding. Breast cancer, right, age 79. 1989, Benign Core Biopsy on the right side. 01/03/2020, Lumpectomy on the Right side. 01/03/2020, Malignant Core Biopsy on the right side. 11/29/2019, Malignant Core Biopsy on the right side. Maternal aunt had breast cancer at or over age 50. Prior Study Comparison: 04/08/2019 Bilateral Screening Mammogram, [facility]. 04/16/2019 Right Diagnostic Mammogram, [facility]. 04/16/2019 Right Diagnostic Ultrasound, [facility]. 11/04/2019 Right Diagnostic Ultrasound, [facility]. 11/29/2019 Right Diagnostic Mammogram, [facility]. 05/19/2020 Bilateral Diagnostic Mammogram, [facility]. 05/21/2021 Bilateral Diagnostic Mammogram, [facility]. 05/21/2021 Right Diagnostic Ultrasound, [facility]. 12/04/2021 Right Diagnostic Mammogram, [facility]. 12/04/2021 Right Diagnostic Ultrasound, [facility]. 06/14/2022 Bilateral MG 3D diag mammo w/cad CRYSTAL, [facility]. 06/14/2022 Right US breast limited RT, [facility]. Tissue Density: The breast tissue is almost entirely fat. Findings: Analyzed By CAD. Post surgical changes of the right breast. No new suspicious masses, calcifications or distortions. Overall Assessment: Benign, BI-RAD 2 Management: Screening Mammogram of both breasts in 1 year. Results were given to the patient verbally at the time of exam. Patient should continue monthly self-breast exams. A clinical breast exam by your physician is recommended on an annual basis. This exam should not preclude additional follow-up of suspicious palpable abnormalities. Note on Luanne scores and lifetime risk: 1. A Luanne score greater than 3% is considered moderate risk. If this is the case, consider specialist referral to assess eligibility for a risk reducing agent. 2. If overall lifetime risk for the development of breast cancer is 20% or higher, the patient may qualify for future screening with alternating mammogram and breast MRI. Electronically signed and approved by: Khris Gonzalez DO
== END | disposition home or self-care (01) ==
LOC: RADMAMWWP 08:49
PROVIDERS: ATTEND Surgery
DX: R92.8 Other abnormal and inconclusive findings on diagnostic imaging of breast (principal); Z80.3 Family history of malignant neoplasm of breast; Z78.0 Asymptomatic menopausal state
CPT/HCPCS: 77066; G0279; 77062

== ENCOUNTER 2024-05-27 11:13 | Emergency (ER) | payer MEDICARE, BC ==
--- NOTE | 2024-05-27 11:50 | ED ---
Wound/Laceration HPI - General Chief Complaint: Wound/Laceration Stated Complaint: R Hand Laceration Time Seen by Provider: 05/27/24 11:27 Source: patient, RN notes reviewed Mode of arrival: ambulatory Limitations: no limitations - History of Present Illness Initial Comments: This is an 83-year-old female who presents to the emergency department for a sk in tear to the right hand. States that she bumped this on a wall while she was walking. States that this is painful and she took Tylenol shortly before arrival. Tetanus vaccine is up-to-date. - Related Data Home Medications Medication Instructions Recorded Confirmed Aspirin 81 mg PO HS 03/19/16 07/28/22 Fluticasone Nasal [place] [Flonase 1 spr EA NOSTRIL BID 07/16/22 07/28/22 Nasal [place]] atenoloL [Tenormin] 50 mg PO BID 07/28/22 07/28/22 Previous Rx's Medication Instructions Recorded Apixaban [Eliquis] 5 mg PO BID #60 tab 07/17/22 Acetaminophen Tab [Tylenol] 650 mg PO Q6HR PRN tab 07/18/22 Amiodarone [Cordarone] 200 mg PO DAILY #60 tab 07/18/22 Clindamycin [Cleocin] 450 mg PO Q8H 7 Days #63 cap 10/08/22 Sodium Chloride [Saline Mist] 1 spray EA NOSTRIL TID #45 ml 10/08/22 Allergies Allergy/AdvReac Type Severity Reaction Status Date / Time azithromycin [From Zithromax] Allergy Nausea & Verified 10/08/22 09:22 Vomiting & Diarrhea Penicillins Allergy Rash/Hives Verified 10/08/22 09:22 ezetimibe [From Zetia] AdvReac Unknown Nausea & Verified 10/08/22 09:22 Vomiting & Diarrhea Fqdwxnl-JHU-JdK Reductase AdvReac Unknown Nausea & Verified 10/08/22 09:22 Inhibitor Vomiting & [Ysiavtw-Xlq-Von Reductase Diarrhea Inhibitor] Review of Systems ROS Statement: Those systems with pertinent positive or pertinent negative responses have been documented in the HPI. ROS Other: All systems not noted in ROS Statement are negative. Past Medical History Past Medical History: Atrial Fibrillation, Cancer, Hyperlipidemia, Hypertension, Osteoarthritis (OA) Additional Past Medical History / Comment(s): Recent abdominal pain/weakness, R breast cancer/lumpectomy, basal skin cancer with removal, pt does not tolerate statins, arthritis in hands, knees, hips and back, chronic back pain, migraines until menopause, diarrhea since cholecystectomy. History of Any Multi-Drug Resistant Organisms: None Reported Past Surgical History: Cholecystectomy, Hysterectomy Additional Past Surgical History / Comment(s): R breast lumpectomy, skin cancer removed from face, L carpal tunnel release, bilateral cataracts removed/lens implants and then surgery bilateral eyes to remove a film, colonoscopy. Past Anesthesia/Blood Transfusion Reactions: Postoperative Nausea & Vomiting (PONV) Past Psychological History: No Psychological Hx Reported Smoking Status: Never smoker Past Alcohol Use History: None Reported Past Drug Use History: None Reported - Past Family History Father Family Medical History: Cancer Additional Family Medical History / Comment(s): FATHER AT 73 YRS FROM COLON CANCER WITH METS. Mother Family Medical History: CVA/TIA Additional Family Medical History / Comment(s): LUPUS. Mother at age 94yrs General Exam Limitations: no limitations General appearance: alert, in no apparent distress Head exam: Present: atraumatic, normocephalic, normal inspection Respiratory exam: Present: normal lung sounds bilaterally. Absent: respiratory distress, wheezes, rales, rhonchi, stridor Cardiovascular Exam: Present: regular rate, normal rhythm, normal heart sounds. Absent: systolic murmur, diastolic murmur, rubs, gallop, clicks Neurological exam: Present: alert, oriented X3, CN II-XII intact Psychiatric exam: Present: normal affect, normal mood Skin exam: Present: other (4 cm skin tear to the dorsal aspect of the right hand. Minor active bleeding.) Course Vital Signs 05/27/24 05/27/24 11:21 12:06 Temperature 97.7 F 97.9 F Pulse Rate 71 70 Respiratory 20 18 Rate Blood Pressure 172/77 159/82 O2 Sat by Pulse 98 98 Oximetry Medical Decision Making - Medical Decision Making This is an 83-year-old female who presents to the emergency department for a skin tear to the right hand. Was pt. sent in by a medical professional or institution? @ -No Did you speak to anyone other than the patient for history? @ -No Did you review nursing and triage notes? @ -Yes, and I agree, it is accurate with regards to the patient's symptoms. Were old charts reviewed? @ -No Differential Diagnosis? @ -Differential Skin Tear: Skin tear, laceration, abrasion, burn, this is not meant to be an all-inclusive list. EKG interpreted by me (3pts min.)? @ -Not obtained X-rays interpreted by me (1pt min.)? @ -Not obtained CT interpreted by me (1pt min.)? @ -Not obtained U/S interpreted by me (1pt. min.)? @ -Not obtained What testing was considered but not performed? (CT, X-rays, U/S, labs)? Why? @ -None What meds were considered but not given? Why? @ -None Did you discuss the management of the patient with other professionals? @ -No Did you reconcile home meds? @ -No Was smoking cessation discussed for >3mins.? @ -No Was critical care preformed (if so, how long)? @ -No Were there social determinants of health that impacted care today? How? (Homelessness, low income, unemployed, alcoholism, drug addiction, t ransportation, low edu. Level, literacy, decrease access to med. care, snf, rehab)? @ -No Was there de-escalation of care discussed even if they declined? (Discuss DNR or withdrawal of care, Hospice)? @ -No What co-morbidities impacted this encounter? (DM, HTN, Smoking, COPD, CAD, Cancer, CVA, Hep., AIDS, mental health diagnosis, sleep apnea, morbid obesity)? @ -None Was patient admitted / discharged? @ -Discharged. The skin tear was thoroughly cleansed and the flap was untucked and put back into anatomical position. The flap was tacked down with Steri- Strips and the wound was then bandaged. Tetanus vaccine is already up-to-date. Advised to continue to take Tylenol as needed for pain relief. Undiagnosed new problem with uncertain prognosis? @ -None Drug Therapy requiring intensive monitoring for toxicity (Heparin, Nitro, Insulin, Cardizem)? @ -None Were any procedures done? @ -None Diagnosis/symptom? @ -Skin tear Acute, or Chronic, or Acute on Chronic? @ -Acute Uncomplicated (without systemic symptoms) or Complicated (systemic symptoms)? @ -Uncomplicated Side effects of treatment? @ -None Exacerbation, Progression, or Severe Exacerbation] @ -Not applicable Poses a threat to life or bodily function? @ -No Return precautions reviewed in depth, the patient is instructed to return to the emergency department with any new, worsening, or concerning symptoms. Patient verbalized understanding. This case was discussed in detail with the attending ED physician, Dr. Mayfield. Presentation, findings, and treatment plan discussed in detail as well. Disposition Clinical Impression: Skin tear Disposition: HOME SELF-CARE Instructions (If sedation given, give patient instructions): Skin Tear (ED), Steristrips (ED) Additional Instructions: Return to the emergency department with any new, worsening, or concerning symptoms. Follow up with your primary care provider in 1-2 days. Is patient prescribed a controlled substance at d/c from ED?: No Referrals: Marisol Blair MD [Primary Care Provider] - 1-2 days Time of Disposition: 11:50
[2024-05-27 12:08] VITALS: BP 159/82; PULSE 70; RESP 18; TEMP 97.9
== END 2024-05-27 13:14 | disposition home or self-care (01) ==
LOC: EC 11:13
DX: S61.411A Laceration without foreign body of right hand, initial encounter (principal); Z88.0 Allergy status to penicillin; Z88.1 Allergy status to other antibiotic agents; Z88.8 Allergy status to other drugs, medicaments and biological substances; W22.09XS Striking against other stationary object, sequela; Y93.01 Activity, walking, marching and hiking
CPT/HCPCS: 12002; 99282

== ENCOUNTER 2025-06-27 21:28 | Emergency (ER) | payer MEDICARE, BC ==
--- NOTE | 2025-06-27 23:24 | ED ---
Recheck HPI - General Chief Complaint: Recheck/Abnormal Lab/Rx Stated Complaint: Head bleeding-Post Surgery Time Seen by Provider: 06/27/25 22:44 Source: family, RN notes reviewed, old records reviewed Mode of arrival: wheelchair Limitations: no limitations - History of Present Illness Initial Comments: This is 84-year-old female for wound recheck. 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 Patient has had significant bleeding from the forehead since then which did stop and then again started tonight. Patient presents for evaluation regarding bleeding from forehead, surgical wound, no feelings of lightheadedness dizziness or weakness MD Complaint: wound re-check -: hour(s) Returns Today for: wound recheck Symptoms Since Prior Visit: no new symptoms Associated Symptoms: none Treatments Prior to Arrival: dressings - Related Data Home Medications Medication Instructions Recorded Confirmed Aspirin 81 mg PO HS 03/19/16 07/28/22 Fluticasone Nasal [place] [Flonase 1 spr EA NOSTRIL BID 07/16/22 07/28/22 Nasal [place]] atenoloL [Tenormin] 50 mg PO BID 07/28/22 07/28/22 Previous Rx's Medication Instructions Recorded Apixaban [Eliquis] 5 mg PO BID #60 tab 07/17/22 Acetaminophen Tab [Tylenol] 650 mg PO Q6HR PRN tab 07/18/22 Amiodarone [Cordarone] 200 mg PO DAILY #60 tab 07/18/22 Clindamycin [Cleocin] 450 mg PO Q8H 7 Days #63 cap 10/08/22 Sodium Chloride [Saline Mist] 1 spray EA NOSTRIL TID #45 ml 10/08/22 Allergies Allergy/AdvReac Type Severity Reaction Status Date / Time azithromycin [From Zithromax] Allergy Nausea & Verified 06/27/25 22:52 Vomiting & Diarrhea Penicillins Allergy Rash/Hives Verified 06/27/25 22:52 ezetimibe [From Zetia] AdvReac Unknown Nausea & Verified 06/27/25 22:52 Vomiting & Diarrhea Ucykmsy-ITX-PnC Reductase AdvReac Unknown Nausea & Verified 06/27/25 22:52 Inhibitor Vomiting & [Shvrubs-Qup-Crx Reductase Diarrhea Inhibitor] Review of Systems ROS Statement: Those systems with pertinent positive or pertinent negative responses have been documented in the HPI. ROS Other: All systems not noted in ROS Statement are negative. Past Medical History Past Medical History: Atrial Fibrillation, Cancer, Hyperlipidemia, Hypertension, Osteoarthritis (OA) Additional Past Medical History / Comment(s): Recent abdominal pain/weakness, R breast cancer/lumpectomy, basal skin cancer with removal, pt does not tolerate statins, arthritis in hands, knees, hips and back, chronic back pain, migraines until menopause, diarrhea since cholecystectomy. History of Any Multi-Drug Resistant Organisms: None Reported Past Surgical History: Cholecystectomy, Hysterectomy Additional Past Surgical History / Comment(s): R breast lumpectomy, skin cancer removed from face, L carpal tunnel release, bilateral cataracts removed/lens implants and then surgery bilateral eyes to remove a film, colonoscopy. Past Anesthesia/Blood Transfusion Reactions: Postoperative Nausea & Vomiting (PONV) Past Psychological History: No Psychological Hx Reported Smoking Status: Never smoker Past Alcohol Use History: None Reported Past Drug Use History: None Reported - Past Family History Father Family Medical History: Cancer Additional Family Medical History / Comment(s): FATHER AT 73 YRS FROM COLON CANCER WITH METS. Mother Family Medical History: CVA/TIA Additional Family Medical History / Comment(s): LUPUS. Mother at age 94yrs General Exam Limitations: no limitations General appearance: alert, in no apparent distress Head exam: Present: normocephalic, normal inspection. Absent: atraumatic (Patient does have 3 x 3 cm lesion with removal, healing on her forehead, bleeding is stopped) Eye exam: Present: normal appearance, PERRL, EOMI. Absent: scleral icterus, conjunctival injection, periorbital swelling ENT exam: Present: normal exam, mucous membranes moist Neck exam: Present: normal inspection. Absent: tenderness, meningismus, lymphadenopathy Respiratory exam: Present: normal lung sounds bilaterally. Absent: respiratory distress, wheezes, rales, rhonchi, stridor Cardiovascular Exam: Present: regular rate, normal rhythm, normal heart sounds. Absent: systolic murmur, diastolic murmur, rubs, gallop, clicks GI/Abdominal exam: Present: soft, normal bowel sounds. Absent: distended, tenderness, guarding, rebound, rigid Extremities exam: Present: normal inspection, full ROM, normal capillary refill. Absent: tenderness, pedal edema, joint swelling, calf tenderness Back exam: Present: normal inspection Neurological exam: Present: alert, oriented X3, CN II-XII intact Psychiatric exam: Present: normal affect, normal mood Skin exam: Present: warm, dry, intact, normal color. Absent: rash Course Vital Signs 06/27/25 06/27/25 22:47 23:34 Temperature 97.9 F 98.0 F Pulse Rate 60 66 Respiratory 18 16 Rate Blood Pressure 168/73 163/79 O2 Sat by Pulse 97 98 Oximetry - Reevaluation(s) Reevaluation #1: Medical records reviewed Reevaluation #2: Patient symptoms improved Reevaluation #3: Patient informed results questions answered Reevaluation #4: Was pt. sent in by a medical professional or institution (, [facility], [employer], urgent care, hospital, or long term...) When possible be specific @ -No Did you speak to anyone other than the patient for history (EMS, parent, family, police, friend...)? What history was obtained from this source @ -No Did you review nursing and triage notes (agree or disagree)? Why? @ -I reviewed and agree with nursing and triage notes Were old charts reviewed (outside hosp., previous admission, EMS record, old EKG, old radiological studies, urgent care reports/EKG's, long term records)? Report findings @ -Yes old charts reviewed and noncontributory Differential Diagnosis (chest pain, altered mental status, abdominal pain women, abdominal pain men, vaginal bleeding, weakness, fever, dyspnea, syncope, headache, dizziness, GI bleed, back pain, seizure, CVA, palpatations, mental health, musculoskeletal)? @ -Yes as above EKG interpreted by me (3pts min.). @ -As above X-rays interpreted by me (1pt min.). @ -None CT interpreted by me (1pt min.). @ -None U/S interpreted by me (1pt. min.). @ -None done What testing was considered but not performed or refused? (CT, X-rays, U/S, labs)? Why? @ -None What meds were considered but not given or refused? Why? @ -None Did you discuss the management of the patient with other professionals (professionals i.e. [facility] [place], [employer], lab, RT, psych nurse, social service liaison, independent distributor, teacher, technology officer, director of casework)? Give summary @ -No Was smoking cessation discussed for >3mins.? @ -No Was critical care preformed (if so, how long)? @ -No Were there social determinants of health that impacted care today? How? (Homelessness, low income, unemployed, alcoholism, drug addiction, transportation, low edu. Level, literacy, decrease access to med. care, half-way, rehab)? @ -No Was there de-escalation of care discussed even if they declined (Discuss DNR or withdrawal of care, Hospice)? DNR status @ -No What co-morbidities impacted this encounter? (DM, HTN, Smoking, COPD, CAD, Cancer, CVA, ARF, Chemo, Hep., AIDS, mental health diagnosis, sleep apnea, morbid obesity)? @ -None Was patient admitted / discharged? Hospital course, mention meds given and route, prescriptions, significant lab abnormalities, going to OR and other pertinent info. @ - 84 female with cancerous tumor lesion removed from forehead today. Persistent bleeding since. Patient's bleeding has stopped, bandages changed cleaned patient is no acute distress has no current complaints and can be discharged home Undiagnosed new problem with uncertain prognosis? @ -No Drug Therapy requiring intensive monitoring for toxicity (Heparin, Nitro, Insulin, Cardizem)? @ -No Were any procedures done? @ -No Diagnosis/symptom? @ -Postoperative bleeding Acute, or Chronic, or Acute on Chronic? @ -Acute Uncomplicated (without systemic symptoms) or Complicated (systemic symptoms)? @ -Complicated Side effects of treatment? @ -No Exacerbation, Progression, or Severe Exacerbation? @ -Exacerbation Poses a threat to life or bodily function? How? (Chest pain, [place], [place], pneumonia, PE, COPD, DKA, ARF, appy, cholecystitis, CVA, Diverticulitis, Homicidal, Suicidal, threat to staff... and all critical care pts) @ -Yes extremities reviewed Reevaluation #5: Differential Weakness: Hypoglycemia, shock, sepsis, hyponatremia, anemia, infection, [place], ETOH, adverse medicine reaction, overdose, stroke, this is not meant to be an all-inclusive list. Medical Decision Making - Medical Decision Making 84 female with cancerous tumor lesion removed from forehead today. Persistent bleeding since. Patient's bleeding has stopped, bandages changed cleaned patien t is no acute distress has no current complaints and can be discharged home Disposition Clinical Impression: Postoperative bleeding from incision, Coagulopathy Disposition: HOME SELF-CARE Condition: Good Instructions (If sedation given, give patient instructions): Postoperative Bl eeding (ED) Is patient prescribed a controlled substance at d/c from ED?: No Referrals: Marisol Blair MD [Primary Care Provider] - 1-2 days Time of Disposition: 23:20
[2025-06-27] MEDS: traMADol 50 MG TAB PO STA (23:29)
[2025-06-27] MEDS: traMADol 50 MG STARTER PACK TAB BTL PO STA (23:31)
[2025-06-27 23:41] VITALS: BP 163/79; PULSE 66; RESP 16; TEMP 98
== END 2025-06-27 23:34 | disposition home or self-care (01) ==
LOC: EC 21:28
DX: D68.9 Coagulation defect, unspecified (principal); L76.22 Postprocedural hemorrhage of skin and subcutaneous tissue following other procedure; Z88.0 Allergy status to penicillin; Z88.1 Allergy status to other antibiotic agents; Z88.8 Allergy status to other drugs, medicaments and biological substances
CPT/HCPCS: 99282